=== PATIENT | female | born 1980 | race Caucasian/White ===

== ENCOUNTER 2017-03-06 19:57 | Emergency (ER) | payer BC ==
[2017-03-06 20:03] VITALS: BP 124/69
[2017-03-06] MEDS ORDERED: Albuterol/Ipratropium 3.0-0.5 MG/3 ML Neb Soln NEB ONE (20:13)
--- NOTE | 2017-03-06 20:16 | EDM.PDOC ---
ED HPI GENERAL MEDICAL PROBLEM - General Chief Complaint: Respiratory Problem Stated Complaint: BY AMBULANCE Time Seen by Provider: 03/06/17 20:13 Source of Information: Reports: Patient History Limitations: Reports: No Limitations - History of Present Illness INITIAL COMMENTS - FREE TEXT/NARRATIVE: h/o asthma use neb was ok till got out of shower started cough & wheeze not getting better. has been feeling warmer and not well past few days. - Related Data Allergies Allergy/AdvReac Type Severity Reaction Status Date / Time penicillin Allergy Anaphylactic Verified 06/14/16 16:02 Shock Home Meds: Home Meds Fluticasone Propionate [Flonase] 0 gm NASBOTH DAILY 06/27/15 [History] Albuterol Sulfate [Ventolin Hfa] 2 puff INH Q4H PRN 10/29/15 [History] Multivitamin 1 tab PO DAILY 10/29/15 [History] Past Medical History HEENT History: Reports: None Cardiovascular History: Reports: None Respiratory History: Reports: Asthma Gastrointestinal History: Reports: None Genitourinary History: Reports: Other (See Below) Other Genitourinary History: PCOS [employer]CHNICIAN History: Reports: Polycystic Ovaries Musculoskeletal History: Reports: Fracture Neurological History: Reports: None Psychiatric History: Reports: None Endocrine/Metabolic History: Reports: None Hematologic History: Reports: None Immunologic History: Reports: None Oncologic (Cancer) History: Reports: None Dermatologic History: Reports: None - Infectious Disease History Infectious Disease History: Reports: None - Past Surgical History Female Surgical History: Reports: Section Musculoskeletal Surgical History: Reports: Shoulder Surgery, Other (See Below) Social & Family History - Family History Family Medical History: Noncontributory HEENT: Reports: None Cardiac: Reports: None Respiratory: Reports: None GI: Reports: None : Reports: None OBGYN: Reports: None Musculoskeletal: Reports: None Neurological: Reports: None Endocrine/Metabolic: Reports: None Hematologic: Reports: None - Tobacco Use Smoking Status *Q: Never Smoker Years of Tobacco use: 10 Packs/Tins Daily: 0.1 Second Hand Smoke Exposure: No - Caffeine Use Caffeine Use: Reports: Coffee - Recreational Drug Use Recreational Drug Use: No - Living Situation & Occupation Living situation: Reports: , with Family Occupation: Employed ED ROS GENERAL - Review of Systems Review Of Systems: ROS reveals no pertinent complaints other than HPI. ED EXAM, GENERAL - Physical Exam Exam: See Below Exam Limited By: No Limitations General Appearance: Alert, WD/WN, Mild Distress, Other (episodic cough spasms) Ears: Hearing Grossly Normal Throat/Mouth: Normal Voice, No Airway Compromise Head: Atraumatic Neck: Non-Tender, Full Range of Motion Respiratory/Chest: No Respiratory Distress, No Accessory Muscle Use, Decreased Breath Sounds, Rhonchi, Wheezing. No: Retractions, Splinting Cardiovascular: Regular Rate, Rhythm GI/Abdominal: Soft, Non-Tender Neurological: Alert, Oriented, Normal Cognition, Normal Gait, No Motor/Sensory Deficits Psychiatric: Tearful Skin Exam: Warm, Dry Lymphatic: No Adenopathy Course - Vital Signs Last Recorded V/S: Last Vital Signs Temp 36.0 C 03/06/17 20:01 Pulse 115 H 03/06/17 20:01 Resp 18 03/06/17 20:01 BP 124/69 03/06/17 20:01 Pulse Ox 95 03/06/17 20:01 - Orders/Labs/Meds Orders: Active Orders 24 hr Category Date Time Status RT Aerosol Therapy [RC] ASDIRECTED Care 03/06/17 20:13 Active Chest 2V [CR] Urgent Exams 03/06/17 20:12 Taken Codeine/Promethazine [Phenergan with Codeine] Med 03/06/17 21:06 Once 5 ml PO ONETIME ONE Medication Orders Promethazine HCl/Codeine (Phenergan With Codeine) 5 ml PO ONETIME ONE Stop: 03/06/17 21:07 Labs: Laboratory Tests 03/06/17 03/06/17 Range/Units 20:30 20:30 WBC 9.0 (5.0-10.0) 10^3/uL RBC 5.42 H (4.2-5.4) 10^6/uL Hgb 14.0 (12.0-16.0) g/dL Hct 43.4 (37.0-47.0) % MCV 80.1 (80-100) fL MCH 25.8 L (27.0-34.0) pg MCHC 32.3 L (33.0-35.0) g/dL Plt Count 249 (150-450) 10^3/uL Neut % (Auto) 55.1 (42.2-75.2) % Lymph % (Auto) 30.8 (20.5-50.1) % [place] % (Auto) 7.9 (2-8) % Eos % (Auto) 5.6 H (1.0-3.0) % Baso % (Auto) 0.6 (0.0-1.0) % Sodium 139 (135-145) mmol/L Potassium 3.9 (3.6-5.0) mmol/L Chloride 105 (101-111) mmol/L Carbon Dioxide 26.0 (21.0-31.0) mmol/L Anion Gap 11.9 BUN 5 L (7-18) mg/dL Creatinine 0.9 (0.6-1.3) mg/dL Est Cr Clr Drug Dosing 72.17 mL/min Estimated GFR (MDRD) > 60 BUN/Creatinine Ratio 5.55 Glucose 157 H (74-105) mg/dL Calcium 8.9 (8.4-10.2) mg/dl Total Bilirubin 1.4 H (0.2-1.0) mg/dL AST 34 (10-42) IU/L ALT 38 (10-60) IU/L Alkaline Phosphatase 45 (42-121) IU/L Total Protein 6.8 (6.7-8.2) g/dl Albumin 4.0 (3.2-5.5) g/dl Globulin 2.8 Albumin/Globulin Ratio 1.43 Meds: Medications Generic Name Dose Route Start Last Admin Trade Name Freq PRN Reason Stop Dose Admin Promethazine HCl/Codeine 5 ml 03/06/17 21:06 Phenergan With Codeine PO 03/06/17 21:07 ONETIME ONE Discontinued Medications Generic Name Dose Route Start Last Admin Trade Name Freq PRN Reason Stop Dose Admin Albuterol/Ipratropium 3 ml 03/06/17 20:13 03/06/17 20:40 Duoneb 3.0-0.5 Mg/3 Ml NEB 03/06/17 20:14 3 ml ONETIME ONE Administration - Re-Assessments/Exams Free Text/Narrative Re-Assessment/Exam: 03/06/17 21:07 negative results discussed with Pt who is feeling much better now. Departure - Departure Time of Disposition: 21:07 Disposition: Home, Self-Care 01 Condition: good Clinical Impression: Asthma with status asthmaticus Qualifiers: Asthma severity: mild persistent Qualified Code(s): J45.32 - Mild persistent asthma with status asthmaticus - Discharge Information Instructions: Asthma, Adult Forms: ED Department Discharge Additional Instructions: 1) rest 2) drink lots of liquids 3) don't sleep flat at night 4) continue neb at home 5) follow up at clinic or recheck as needed rx given; medrol dospak phenergan codeine syrup qid prn - My Orders Last 24 Hours: My Active Orders 03/06/17 20:12 Chest 2V [CR] Urgent 03/06/17 20:13 RT Aerosol Therapy [RC] ASDIRECTED 03/06/17 21:06 Codeine/Promethazine [Phenergan with Codeine] 5 ml PO ONETIME ONE - Assessment/Plan Last 24 Hours: My Active Orders 03/06/17 20:12 Chest 2V [CR] Urgent 03/06/17 20:13 RT Aerosol Therapy [RC] ASDIRECTED 03/06/17 21:06 Codeine/Promethazine [Phenergan with Codeine] 5 ml PO ONETIME ONE
[2017-03-06 20:57] LABS: CHLORIDE,CL 105 mmol/L (101-111); SODIUM,NA 139 mmol/L (135-145)
[2017-03-06] MEDS ORDERED: Codeine/Promethazine 10-6.25 MG/5 ML Syrup 5 ML UD Cup PO ONE (21:06)
== END 2017-03-06 21:19 | disposition home or self-care (01) ==
LOC: DL.ED 19:57
DX: J45.32 Mild persistent asthma with status asthmaticus (principal); Z88.0 Allergy status to penicillin; Z79.899 Other long term (current) drug therapy
CPT/HCPCS: 36415; 71020; 80053; 85025; 94640; 99285

== ENCOUNTER 2017-09-04 13:20 | Emergency (ER) | payer BC ==
--- NOTE | 2017-09-04 13:33 | EDM.PDOC ---
ED HPI GENERAL MEDICAL PROBLEM - General Chief Complaint: Back Pain or Injury Stated Complaint: [id number] LOWER BACK PAIN Time Seen by Provider: 09/04/17 13:28 Source of Information: Reports: Patient History Limitations: Reports: No Limitations - History of Present Illness INITIAL COMMENTS - FREE TEXT/NARRATIVE: 36 yo white female c/o LBP since ( 3 days ). Pt. also states she slipped and fell backward onto steps two weeks ago. Pt. denies any other symptoms Onset Date: 09/02/17 Onset Time: 20:00 Duration: Day(s): Location: Reports: Back (low) Quality: Reports: Ache Severity: Moderate Improves with: Reports: Rest Worsens with: Reports: Movement Context: Reports: Activity Associated Symptoms: Reports: No Other Symptoms Lower Back Pain Score (Numeric/FACES): 8 - Related Data Allergies Allergy/AdvReac Type Severity Reaction Status Date / Time peanut Allergy Anaphylactic Verified 09/04/17 13:27 Shock penicillin Allergy Anaphylactic Verified 09/04/17 13:27 Shock shellfish derived Allergy Anaphylactic Verified 09/04/17 13:27 Shock environmental Allergy Itching Uncoded 03/06/17 21:08 Home Meds: Home Meds Fluticasone Propionate [Flonase] 0 gm NASBOTH DAILY 06/27/15 [History] Albuterol Sulfate [Ventolin Hfa] 2 puff INH Q4H PRN 10/29/15 [History] Multivitamin 1 tab PO DAILY 10/29/15 [History] Past Medical History HEENT History: Reports: None Cardiovascular History: Reports: None Respiratory History: Reports: Asthma Gastrointestinal History: Reports: None Genitourinary History: Reports: Other (See Below) Other Genitourinary History: PCOS 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 Musculoskeletal History: Reports: Fracture Neurological History: Reports: None Psychiatric History: Reports: None Endocrine/Metabolic History: Reports: None Hematologic History: Reports: None Immunologic History: Reports: None Oncologic (Cancer) History: Reports: None Dermatologic History: Reports: None - Infectious Disease History Infectious Disease History: Reports: None - Past Surgical History Head Surgeries/Procedures: Reports: None Female Surgical History: Reports: Section Musculoskeletal Surgical History: Reports: Shoulder Surgery Social & Family History - Family History Family Medical History: Noncontributory HEENT: Reports: None Cardiac: Reports: None Respiratory: Reports: None GI: Reports: None : Reports: None OBGYN: Reports: None Musculoskeletal: Reports: None Neurological: Reports: None Endocrine/Metabolic: Reports: None Hematologic: Reports: None - Tobacco Use Smoking Status *Q: Never Smoker Years of Tobacco use: 10 Packs/Tins Daily: 0.1 Second Hand Smoke Exposure: No - Caffeine Use Caffeine Use: Reports: Coffee - Recreational Drug Use Recreational Drug Use: No - Living Situation & Occupation Living situation: Reports: , with Family Occupation: Employed ED ROS GENERAL - Review of Systems Review Of Systems: See Below Constitutional: Reports: No Symptoms HEENT: Reports: No Symptoms Respiratory: Reports: No Symptoms Cardiovascular: Reports: No Symptoms Endocrine: Reports: No Symptoms GI/Abdominal: Reports: No Symptoms : Reports: No Symptoms Musculoskeletal: Reports: Back Pain (low) Skin: Reports: No Symptoms Neurological: Reports: No Symptoms Psychiatric: Reports: No Symptoms Hematologic/Lymphatic: Reports: No Symptoms Immunologic: Reports: No Symptoms ED EXAM,LOWER BACK PAIN/INJURY - Physical Exam Exam: See Below Exam Limited By: No Limitations General Appearance: Alert, WD/WN, No Apparent Distress Eye Exam: Bilateral Eye: EOMI, PERRL Ears: Normal External Exam Nose: Normal Inspection Throat/Mouth: Normal Inspection Head: Atraumatic Neck: Normal Inspection Respiratory/Chest: No Respiratory Distress, Lungs Clear Cardiovascular: Normal Peripheral Pulses GI/Abdominal: Normal Bowel Sounds, Soft Back Exam: Normal Inspection, Decreased Range of Motion, Paraspinal Tenderness, Vertebral Tenderness Extremities: Normal Inspection, Normal Range of Motion, Non-Tender Neurological: Alert, Normal Mood/Affect, Normal Dorsiflexion, CN II-XII Intact DTR - Lower Extremities: 2+: Knee (R), Knee (L) Psychiatric: Normal Affect Skin Exam: Warm, Dry, Intact Lymphatic: No Adenopathy Course - Vital Signs Text/Narrative:: Xray show Normal L/S spine and Increased bowel stool Last Recorded V/S: Last Vital Signs Temp 37.2 C 09/04/17 13:28 Pulse 107 H 09/04/17 13:28 Resp 18 09/04/17 13:28 BP 122/89 09/04/17 13:28 Pulse Ox 100 09/04/17 13:28 - Orders/Labs/Meds Orders: Active Orders 24 hr Category Date Time Status Lumbar Spine 2 or 3V [CR] Urgent Exams 09/04/17 14:01 Taken CBC WITH AUTO DIFF [HEME] Stat Lab 09/04/17 13:38 Results ESR [SEDIMENTATION RATE MANUAL] [HEME] Stat Lab 09/04/17 13:38 Results Labs: Laboratory Tests 09/04/17 09/04/17 09/04/17 Range/Units 13:35 13:35 13:35 WBC (5.0-10.0) 10^3/uL RBC (4.2-5.4) 10^6/uL Hgb (12.0-16.0) g/dL Hct (37.0-47.0) % MCV (80-100) fL MCH (27.0-34.0) pg MCHC (33.0-35.0) g/dL Plt Count (150-450) 10^3/uL Neut % (Auto) (42.2-75.2) % Lymph % (Auto) (20.5-50.1) % [place] % (Auto) (2-8) % Eos % (Auto) (1.0-3.0) % Baso % (Auto) (0.0-1.0) % Urine Color Yellow (YELLOW) Urine Appearance Clear (CLEAR) Urine pH 6.0 (5.0-9.0) Ur Specific [place] 1.010 (1.005-1.030) Urine Protein Negative (NEGATIVE) Urine Glucose (UA) 500 H (NEGATIVE) Urine Ketones Negative (NEGATIVE) Urine Occult Blood Negative (NEGATIVE) Urine Nitrite Negative (NEGATIVE) Urine Bilirubin Negative (NEGATIVE) Urine Urobilinogen 0.2 (0.2-1.0) mg/dL Ur Leukocyte Esterase Negative (NEGATIVE) Urine RBC Not seen /HPF Urine WBC 0-5 (0-5/HPF) /HPF Ur Epithelial Cells Rare /HPF Urine Bacteria Occasional (0-FEW/HPF) /HPF Urine HCG, Qual Negative Urine Opiates Screen Negative (NEGATIVE) Ur Oxycodone Screen Negative (NEGATIVE) Urine Methadone Screen Negative (NEGATIVE) Ur Barbiturates Screen Negative (NEGATIVE) U Tricyclic Antidepress Negative (NEGATIVE) Ur Phencyclidine Scrn Negative (NEGATIVE) Ur Amphetamine Screen Negative (NEGATIVE) U Methamphetamines Scrn Negative (NEGATIVE) Urine MDMA Screen Negative (NEGATIVE) U Benzodiazepines Scrn Negative (NEGATIVE) Urine Cocaine Screen Negative (NEGATIVE) U Marijuana (THC) Screen Negative (NEGATIVE) 09/04/17 Range/Units 13:38 WBC 11.3 H (5.0-10.0) 10^3/uL RBC 5.30 (4.2-5.4) 10^6/uL Hgb 13.1 (12.0-16.0) g/dL Hct 40.8 (37.0-47.0) % MCV 77.0 L D (80-100) fL MCH 24.7 L (27.0-34.0) pg MCHC 32.1 L (33.0-35.0) g/dL Plt Count 307 (150-450) 10^3/uL Neut % (Auto) 68.9 (42.2-75.2) % Lymph % (Auto) 23.2 (20.5-50.1) % [place] % (Auto) 6.0 (2-8) % Eos % (Auto) 1.6 (1.0-3.0) % Baso % (Auto) 0.3 (0.0-1.0) % Urine Color (YELLOW) Urine Appearance (CLEAR) Urine pH (5.0-9.0) Ur Specific [place] (1.005-1.030) Urine Protein (NEGATIVE) Urine Glucose (UA) (NEGATIVE) Urine Ketones (NEGATIVE) Urine Occult Blood (NEGATIVE) Urine Nitrite (NEGATIVE) Urine Bilirubin (NEGATIVE) Urine Urobilinogen (0.2-1.0) mg/dL Ur Leukocyte Esterase (NEGATIVE) Urine RBC /HPF Urine WBC (0-5/HPF) /HPF Ur Epithelial Cells /HPF Urine Bacteria (0-FEW/HPF) /HPF Urine HCG, Qual Urine Opiates Screen (NEGATIVE) Ur Oxycodone Screen (NEGATIVE) Urine Methadone Screen (NEGATIVE) Ur Barbiturates Screen (NEGATIVE) U Tricyclic Antidepress (NEGATIVE) Ur Phencyclidine Scrn (NEGATIVE) Ur Amphetamine Screen (NEGATIVE) U Methamphetamines Scrn (NEGATIVE) Urine MDMA Screen (NEGATIVE) U Benzodiazepines Scrn (NEGATIVE) Urine Cocaine Screen (NEGATIVE) U Marijuana (THC) Screen (NEGATIVE) Meds: Medications Discontinued Medications Generic Name Dose Route Start Last Admin Trade Name Freq PRN Reason Stop Dose Admin Gabapentin 300 mg 09/04/17 14:01 09/04/17 14:15 Neurontin PO 09/04/17 14:02 300 mg ONETIME ONE Administration Departure - Departure Time of Disposition: 14:16 Disposition: Home, Self-Care 01 Condition: Good Clinical Impression: Acute bilateral low back pain without sciatica - Discharge Information Instructions: Back Pain, Adult, [id number], Muscle Strain, [id number] Forms: ED Department Discharge Additional Instructions: Rest Increase intake of water and Fresh Fruits and Vegetables to promote good bowel health No lifting, pulling or pushing Apply Moist heat to Low Back TID X 15 mins. For Pain: NEURONTIN 300mg BID # 20 MOTRIN 600mg TID w/ Food # 30 F/U w/ PCP - My Orders Last 24 Hours: My Active Orders 09/04/17 13:38 CBC WITH AUTO DIFF [HEME] Stat ESR [SEDIMENTATION RATE MANUAL] [HEME] Stat 09/04/17 14:01 Lumbar Spine 2 or 3V [CR] Urgent - Assessment/Plan Last 24 Hours: My Active Orders 09/04/17 13:38 CBC WITH AUTO DIFF [HEME] Stat ESR [SEDIMENTATION RATE MANUAL] [HEME] Stat 09/04/17 14:01 Lumbar Spine 2 or 3V [CR] Urgent
[2017-09-04 13:36] VITALS: BP 122/89
[2017-09-04] MEDS ORDERED: Gabapentin 300 MG Cap PO ONE (14:01)
== END 2017-09-04 14:27 | disposition home or self-care (01) ==
LOC: DL.ED 13:20
DX: M54.5 Low back pain (principal); Z91.010 Allergy to peanuts; Z88.0 Allergy status to penicillin; Z91.013 Allergy to seafood; Z79.899 Other long term (current) drug therapy
CPT/HCPCS: 36415; 72100; 80305; 81001; 81025; 85025; 85651; 99283; A9270

== ENCOUNTER 2017-10-03 20:28 | Emergency (ER) | payer BC ==
[2017-10-03 20:58] VITALS: BP 121/77
[2017-10-03] MEDS ORDERED: methylPREDNISolone Sodium Succinate 125 MG/2 ML SDV IM ONE (21:09)
[2017-10-03] MEDS ORDERED: Codeine/Promethazine 10-6.25 MG/5 ML Syrup 5 ML UD Cup PO ONE (21:09)
[2017-10-03] MEDS ORDERED: Albuterol/Ipratropium 3.0-0.5 MG/3 ML Neb Soln NEB ONE (21:09)
--- NOTE | 2017-10-03 21:15 | EDM.PDOC ---
ED HPI GENERAL MEDICAL PROBLEM - General Chief Complaint: Respiratory Problem Stated Complaint: HARD TIME BREATHING [id number] Time Seen by Provider: 10/03/17 21:10 Source of Information: Reports: Patient History Limitations: Reports: No Limitations - History of Present Illness INITIAL COMMENTS - FREE TEXT/NARRATIVE: cough spasm past few days, been taking nebs but not working. - Related Data Allergies Allergy/AdvReac Type Severity Reaction Status Date / Time peanut Allergy Anaphylactic Verified 10/03/17 20:53 Shock penicillin Allergy Anaphylactic Verified 10/03/17 20:53 Shock shellfish derived Allergy Anaphylactic Verified 10/03/17 20:53 Shock beer Allergy Anaphylactic Uncoded 10/03/17 20:53 Shock environmental Allergy Itching Uncoded 03/06/17 21:08 Home Meds: Home Meds Fluticasone Propionate [Flonase] 2 spray NASBOTH BID 06/27/15 [History] Albuterol Sulfate [Ventolin Hfa] 2 puff INH Q4H PRN 10/29/15 [History] Multivitamin 1 tab PO DAILY 10/29/15 [History] Albuterol Sulfate [Albuterol Sulfate] 3 ml INH Q4H 10/03/17 [History] Past Medical History HEENT History: Reports: None Cardiovascular History: Reports: None Respiratory History: Reports: Asthma Gastrointestinal History: Reports: None Genitourinary History: Reports: Other (See Below) Other Genitourinary History: PCOS 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 Musculoskeletal History: Reports: Fracture Neurological History: Reports: None Psychiatric History: Reports: None Endocrine/Metabolic History: Reports: None Hematologic History: Reports: None Immunologic History: Reports: None Oncologic (Cancer) History: Reports: None Dermatologic History: Reports: None - Infectious Disease History Infectious Disease History: Reports: None - Past Surgical History Head Surgeries/Procedures: Reports: None HEENT Surgical History: Reports: Adenoidectomy, Tonsillectomy Female Surgical History: Reports: Section Musculoskeletal Surgical History: Reports: Shoulder Surgery, Other (See Below) Other Musculoskeletal Surgeries/Procedures:: ankle surgery Social & Family History - Family History Family Medical History: Noncontributory HEENT: Reports: None Cardiac: Reports: None Respiratory: Reports: None GI: Reports: None : Reports: None OBGYN: Reports: None Musculoskeletal: Reports: None Neurological: Reports: None Endocrine/Metabolic: Reports: None Hematologic: Reports: None - Tobacco Use Smoking Status *Q: Never Smoker Years of Tobacco use: 10 Packs/Tins Daily: 0.1 Used Tobacco, but Quit: Yes Month Tobacco Last Used: april Second Hand Smoke Exposure: No - Caffeine Use Caffeine Use: Reports: Coffee, Soda, Tea - Recreational Drug Use Recreational Drug Use: No - Living Situation & Occupation Living situation: Reports: , with Family Occupation: Employed ED ROS GENERAL - Review of Systems Review Of Systems: ROS reveals no pertinent complaints other than HPI. ED EXAM, GENERAL - Physical Exam Exam: See Below Exam Limited By: No Limitations General Appearance: Alert, WD/WN, Mild Distress, Moderate Distress, Other ( cough spasms) Ears: Hearing Grossly Normal Throat/Mouth: Normal Voice, No Airway Compromise Head: Atraumatic Neck: Non-Tender, Full Range of Motion Respiratory/Chest: No Respiratory Distress, No Accessory Muscle Use, Rhonchi, Wheezing. No: Decreased Breath Sounds Cardiovascular: Regular Rate, Rhythm GI/Abdominal: Soft, Non-Tender Neurological: Alert, Oriented, Normal Cognition, Normal Gait, No Motor/Sensory Deficits, Other Psychiatric: Normal Affect Skin Exam: Warm, Dry, Normal Color Lymphatic: No Adenopathy Course - Vital Signs Last Recorded V/S: Last Vital Signs Temp 37.3 C 10/03/17 20:57 Pulse 110 H 10/03/17 21:31 Resp 20 10/03/17 20:57 BP 121/77 10/03/17 20:57 Pulse Ox 100 10/03/17 20:57 - Orders/Labs/Meds Orders: Active Orders 24 hr Category Date Time Status RT Aerosol Therapy [RC] ASDIRECTED Care 10/03/17 21:10 Active Meds: Medications Discontinued Medications Generic Name Dose Route Start Last Admin Trade Name Freq PRN Reason Stop Dose Admin Albuterol/Ipratropium 3 ml 10/03/17 21:09 10/03/17 21:20 Duoneb 3.0-0.5 Mg/3 Ml NEB 10/03/17 21:10 3 ml ONETIME ONE Administration Methylprednisolone Sodium Succinate 125 mg 10/03/17 21:09 10/03/17 21:20 Solu-Medrol IM 10/03/17 21:10 125 mg ONETIME ONE Administration Promethazine HCl/Codeine 5 ml 10/03/17 21:09 10/03/17 21:20 Phenergan With Codeine PO 10/03/17 21:10 5 ml ONETIME ONE Administration - Re-Assessments/Exams Free Text/Narrative Re-Assessment/Exam: 10/03/17 21:16 re-exam; s/p duoneb + IM solumed = much better. Departure - Departure Time of Disposition: 21:40 Disposition: Home, Self-Care 01 Condition: Good Clinical Impression: Bronchospasm with bronchitis, acute - Discharge Information Instructions: Bronchospasm, Adult, [id number] Referrals: Pennie Farias MD [Primary Care Provider] - Forms: ED Department Discharge Additional Instructions: 1) rest and asleep as much as possible 2) don't sleep flat at night 3) continue neb treatment daily 4) recheck as needed rx given; medrol dospak phenergan codeine syrup qid prn x 4oz - My Orders Last 24 Hours: My Active Orders 10/03/17 21:10 RT Aerosol Therapy [RC] ASDIRECTED - Assessment/Plan Last 24 Hours: My Active Orders 10/03/17 21:10 RT Aerosol Therapy [RC] ASDIRECTED
== END 2017-10-03 21:43 | disposition home or self-care (01) ==
LOC: DL.ED 20:28
DX: J20.9 Acute bronchitis, unspecified (principal); Z91.010 Allergy to peanuts; Z88.0 Allergy status to penicillin; Z91.013 Allergy to seafood
CPT/HCPCS: 94640; 99284; A9270; J2930; 96372

== ENCOUNTER 2017-11-26 21:44 | Emergency (ER) | payer BC ==
[2017-11-26] MEDS ORDERED: methylPREDNISolone Sodium Succinate 125 MG/2 ML SDV IVPUSH ONE (21:58)
[2017-11-26] MEDS ORDERED: Albuterol/Ipratropium 3.0-0.5 MG/3 ML Neb Soln NEB ONE (22:09)
[2017-11-26] MEDS ORDERED: Albuterol 0.083% 2.5 MG/3 ML Neb Soln NEB ONE (23:05)
[2017-11-26] MEDS ORDERED: Albuterol 0.083% 2.5 MG/3 ML Neb Soln ONE (23:07)
--- NOTE | 2017-11-26 23:11 | EDM.PDOC ---
ED HPI GENERAL MEDICAL PROBLEM - General Chief Complaint: Respiratory Problem Stated Complaint: [id number] hard time breathing Time Seen by Provider: 11/26/17 22:00 Source of Information: Reports: Patient History Limitations: Reports: No Limitations - History of Present Illness INITIAL COMMENTS - FREE TEXT/NARRATIVE: Patient states walking out of local theater and had asthma attack, tried inhaler but didn't help, feels tight in chest. Usual use of neb every am, occasional twice daily. No recent URI symptoms. Onset: Today - Related Data Allergies Allergy/AdvReac Type Severity Reaction Status Date / Time peanut Allergy Anaphylactic Verified 11/26/17 23:08 Shock penicillin Allergy Anaphylactic Verified 11/26/17 23:08 Shock shellfish derived Allergy Anaphylactic Verified 11/26/17 23:08 Shock beer Allergy Anaphylactic Uncoded 10/03/17 20:53 Shock environmental Allergy Itching Uncoded 03/06/17 21:08 Home Meds: Home Meds Fluticasone Propionate [Flonase] 2 spray NASBOTH BID 06/27/15 [History] Albuterol Sulfate [Ventolin Hfa] 2 puff INH Q4H PRN 10/29/15 [History] Multivitamin 1 tab PO DAILY 10/29/15 [History] Albuterol Sulfate [Albuterol Sulfate] 3 ml INH Q4H 10/03/17 [History] Cholesterol Pill 20 mg PO BEDTIME 11/26/17 [History] metFORMIN [Glucophage] 1,000 mg PO DAILY 11/26/17 [History] metFORMIN [Glucophage] 1,500 mg PO DAILY 11/26/17 [History] Past Medical History HEENT History: Reports: None Cardiovascular History: Reports: None Respiratory History: Reports: Asthma Gastrointestinal History: Reports: None Genitourinary History: Reports: Other (See Below) Other Genitourinary History: PCOS 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 Musculoskeletal History: Reports: Fracture Neurological History: Reports: None Psychiatric History: Reports: None Endocrine/Metabolic History: Reports: None Hematologic History: Reports: None Immunologic History: Reports: None Oncologic (Cancer) History: Reports: None Dermatologic History: Reports: None - Infectious Disease History Infectious Disease History: Reports: None - Past Surgical History Head Surgeries/Procedures: Reports: None HEENT Surgical History: Reports: Adenoidectomy, Tonsillectomy Female Surgical History: Reports: Section Musculoskeletal Surgical History: Reports: Shoulder Surgery, Other (See Below) Other Musculoskeletal Surgeries/Procedures:: ankle surgery Social & Family History - Family History Family Medical History: Noncontributory HEENT: Reports: None Cardiac: Reports: None Respiratory: Reports: None GI: Reports: None : Reports: None OBGYN: Reports: None Musculoskeletal: Reports: None Neurological: Reports: None Endocrine/Metabolic: Reports: None Hematologic: Reports: None - Tobacco Use Smoking Status *Q: Never Smoker Years of Tobacco use: 10 Packs/Tins Daily: 0.1 Used Tobacco, but Quit: Yes Month Tobacco Last Used: april Second Hand Smoke Exposure: No - Caffeine Use Caffeine Use: Reports: Coffee, Soda, Tea - Recreational Drug Use Recreational Drug Use: No - Living Situation & Occupation Living situation: Reports: , with Family Occupation: Employed ED ROS GENERAL - Review of Systems Review Of Systems: See Below Constitutional: Reports: No Symptoms HEENT: Reports: No Symptoms Respiratory: Reports: Shortness of Breath, Wheezing, Cough. Denies: Sputum Cardiovascular: Reports: No Symptoms Endocrine: Reports: No Symptoms GI/Abdominal: Reports: No Symptoms Musculoskeletal: Reports: No Symptoms Neurological: Reports: No Symptoms ED EXAM, GENERAL - Physical Exam Exam: See Below Exam Limited By: No Limitations General Appearance: Alert, Mild Distress Eye Exam: Bilateral Eye: EOMI Ears: Normal External Exam Nose: Normal Inspection Throat/Mouth: Normal Inspection Head: Atraumatic Neck: Normal Inspection Respiratory/Chest: Decreased Breath Sounds, Wheezing. No: No Respiratory Distress (mild) Cardiovascular: Normal Peripheral Pulses, Tachycardia GI/Abdominal: Normal Bowel Sounds Extremities: Normal Inspection Neurological: Alert, Oriented Psychiatric: Normal Affect Skin Exam: Warm, Dry, Intact, Normal Color Course - Vital Signs Last Recorded V/S: Last Vital Signs Temp 97.7 F 11/26/17 21:55 Pulse 122 H 11/26/17 23:00 Resp 16 11/26/17 23:00 BP 113/68 11/26/17 23:00 Pulse Ox 98 11/26/17 22:30 - Orders/Labs/Meds Meds: Medications Discontinued Medications Generic Name Dose Route Start Last Admin Trade Name Freq PRN Reason Stop Dose Admin Albuterol 2.5 mg 11/26/17 23:05 11/26/17 23:11 Proventil Neb Soln NEB 11/26/17 23:06 2.5 mg ONETIME ONE Administration Albuterol Confirm 11/26/17 23:07 Proventil Neb Soln Administered 11/26/17 23:08 Dose 2.5 mg .ROUTE .STK-MED ONE Albuterol/Ipratropium 3 ml 11/26/17 22:09 11/26/17 22:13 Duoneb 3.0-0.5 Mg/3 Ml NEB 11/26/17 22:10 3 ml ONETIME ONE Administration Methylprednisolone Sodium Succinate 125 mg 11/26/17 21:58 11/26/17 22:09 Solu-Medrol IVPUSH 11/26/17 21:59 125 mg ONETIME ONE Administration - Radiology Interpretation Free Text/Narrative:: cxr negative - Re-Assessments/Exams Free Text/Narrative Re-Assessment/Exam: 11/26/17 23:08 Moderate improvement following Duo neb. Air exchange improved, , cough with deep inspiration or force d expiration. Repeat albuterol. Departure - Departure Time of Disposition: 23:50 Disposition: Home, Self-Care 01 Condition: Good Clinical Impression: Exacerbation of asthma Qualifiers: Asthma severity: moderate Asthma persistence: persistent Qualified Code(s): J45.41 - Moderate persistent asthma with (acute) exacerbation - Discharge Information Instructions: Asthma, Adult, [id number] Referrals: Pennie Farias MD [Primary Care Provider] - Forms: ED Department Discharge Additional Instructions: rest, light activity tonight albuterol nebulizer or inhaler every 4 hours as needed urgent follow up if symtoms worsen and poor control with home management
[2017-11-26 23:52] VITALS: BP 113/68
== END 2017-11-26 23:30 | disposition home or self-care (01) ==
LOC: DL.ED 21:44
DX: J45.41 Moderate persistent asthma with (acute) exacerbation (principal); Z91.010 Allergy to peanuts; Z88.0 Allergy status to penicillin; Z91.013 Allergy to seafood; Z79.84 Long term (current) use of oral hypoglycemic drugs; Z87.891 Personal history of nicotine dependence
CPT/HCPCS: 71045; 94640; 96374; 99285; J2930; J7620

== ENCOUNTER 2018-02-22 21:30 | Emergency (ER) | payer BC ==
[2018-02-22 21:38] VITALS: BP 132/79
[2018-02-22 22:23] LABS: CHLORIDE,CL 104 mmol/L (101-111); SODIUM,NA 138 mmol/L (135-145)
[2018-02-22] MEDS ORDERED: Ibuprofen 600 MG Tab PO ONE (23:33)
[2018-02-22] MEDS ORDERED: Cyclobenzaprine 10 MG Tab PO ONE (23:33)
--- NOTE | 2018-02-22 23:38 | EDM.PDOC ---
ED HPI GENERAL MEDICAL PROBLEM - General Chief Complaint: Chest Pain Stated Complaint: PAINS ACROSS CHEST [id number] Time Seen by Provider: 02/22/18 21:45 Source of Information: Reports: Patient History Limitations: Reports: No Limitations - History of Present Illness INITIAL COMMENTS - FREE TEXT/NARRATIVE: chest pain since 4 pm today, worse with movement, sitting up . Pain radiates across chest, describes as sharp, no difficulty with breathing. No change in activity. Was at dentist for 3 hours today. Bilateral Chest Pain Score (Numeric/FACES): 4 - Related Data Allergies Allergy/AdvReac Type Severity Reaction Status Date / Time peanut Allergy Anaphylactic Verified 02/22/18 21:38 Shock penicillin Allergy Anaphylactic Verified 02/22/18 21:38 Shock shellfish derived Allergy Anaphylactic Verified 02/22/18 21:38 Shock beer Allergy Anaphylactic Uncoded 02/22/18 21:38 Shock environmental Allergy Itching Uncoded 02/22/18 21:38 Home Meds: Home Meds Fluticasone Propionate [Flonase] 2 spray NASBOTH BID 06/27/15 [History] Albuterol Sulfate [Ventolin Hfa] 2 puff INH Q4H PRN 10/29/15 [History] Multivitamin 1 tab PO DAILY 10/29/15 [History] Albuterol Sulfate 3 ml INH Q4H 10/03/17 [History] metFORMIN [Glucophage] 1,000 mg PO DAILY 11/26/17 [History] atorvaSTATin [Lipitor] 20 mg PO BEDTIME 02/22/18 [History] Past Medical History HEENT History: Reports: None Cardiovascular History: Reports: High Cholesterol Respiratory History: Reports: Asthma Gastrointestinal History: Reports: None Genitourinary History: Reports: Other (See Below) Other Genitourinary History: 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 Musculoskeletal History: Reports: Fracture Neurological History: Reports: None Psychiatric History: Reports: None Endocrine/Metabolic History: Reports: Diabetes, Type II Hematologic History: Reports: None Immunologic History: Reports: None Oncologic (Cancer) History: Reports: None Dermatologic History: Reports: None - Infectious Disease History Infectious Disease History: Reports: None - Past Surgical History Head Surgeries/Procedures: Reports: None HEENT Surgical History: Reports: Adenoidectomy, Tonsillectomy Female Surgical History: Reports: Section Musculoskeletal Surgical History: Reports: Shoulder Surgery, Other (See Below) Other Musculoskeletal Surgeries/Procedures:: ankle surgery Social & Family History - Family History Family Medical History: Noncontributory HEENT: Reports: None Cardiac: Reports: None Respiratory: Reports: None GI: Reports: None : Reports: None OBGYN: Reports: None Musculoskeletal: Reports: None Neurological: Reports: None Endocrine/Metabolic: Reports: None Hematologic: Reports: None - Tobacco Use Smoking Status *Q: Never Smoker Second Hand Smoke Exposure: No - Caffeine Use Caffeine Use: Reports: Coffee, Soda - Recreational Drug Use Recreational Drug Use: No - Living Situation & Occupation Living situation: Reports: , with Family Occupation: Employed ED ROS GENERAL - Review of Systems Review Of Systems: See Below Constitutional: Reports: No Symptoms HEENT: Reports: No Symptoms Respiratory: Reports: No Symptoms. Denies: Shortness of Breath, Wheezing, Pleuritic Chest Pain (no pain with deep inspiration), Cough Cardiovascular: Reports: No Symptoms GI/Abdominal: Reports: No Symptoms Musculoskeletal: Reports: Other (upper chest pain radiates bilaterally with movment, no pain with breathing or when lying still. ) Neurological: Reports: No Symptoms Psychiatric: Reports: Anxiety Hematologic/Lymphatic: Reports: No Symptoms ED EXAM, GENERAL - Physical Exam Exam: See Below Exam Limited By: No Limitations General Appearance: Alert, Anxious, Mild Distress (with movment) Ears: Normal External Exam Nose: Normal Inspection Throat/Mouth: Normal Inspection Head: Atraumatic, Normocephalic Respiratory/Chest: No Respiratory Distress, Lungs Clear, Normal Breath Sounds, Other (mild tenderness with palpation to upper chest). No: Crackles, Rales, Rhonchi, Accessory Muscle Use, Splinting Cardiovascular: Normal Peripheral Pulses, Regular Rate, Rhythm GI/Abdominal: Normal Bowel Sounds, Soft Back Exam: Normal Inspection Extremities: Normal Inspection Neurological: Alert, Oriented, Normal Cognition Psychiatric: Normal Affect, Anxious (mild) Skin Exam: Warm, Dry, Intact EKG INTERPRETATION Rhythm: NSR Course - Vital Signs Last Recorded V/S: Last Vital Signs Temp 99 F 02/22/18 21:33 Pulse 103 H 02/22/18 21:33 Resp 18 02/22/18 21:33 BP 132/79 02/22/18 21:33 Pulse Ox 97 02/22/18 21:33 - Orders/Labs/Meds Orders: Active Orders 24 hr Category Date Time Status EKG 12 Lead [EKG Documentation Completion] [RC] STAT Care 02/22/18 21:54 Active Labs: Laboratory Tests 02/22/18 02/22/18 02/22/18 Range/Units 21:51 21:51 21:51 WBC 13.9 H (5.0-10.0) 10^3/uL RBC 5.03 (4.2-5.4) 10^6/uL Hgb 11.8 L (12.0-16.0) g/dL Hct 37.5 (37.0-47.0) % MCV 74.6 L (80-100) fL MCH 23.5 L (27.0-34.0) pg MCHC 31.5 L (33.0-35.0) g/dL Plt Count 325 (150-450) 10^3/uL Neut % (Auto) 68.6 (42.2-75.2) % Lymph % (Auto) 24.8 (20.5-50.1) % Buchanan % (Auto) 5.3 (2-8) % Eos % (Auto) 1.2 (1.0-3.0) % Baso % (Auto) 0.1 (0.0-1.0) % D-Dimer, Quantitative < 100 (0-400) ng/mL Sodium 138 (135-145) mmol/L Potassium 3.9 (3.6-5.0) mmol/L Chloride 104 (101-111) mmol/L Carbon Dioxide 24.0 (21.0-31.0) mmol/L Anion Gap 13.9 BUN 9 (7-18) mg/dL Creatinine 0.9 (0.6-1.3) mg/dL Est Cr Clr Drug Dosing 71.48 mL/min Estimated GFR (MDRD) > 60 BUN/Creatinine Ratio 10.00 Glucose 135 H (74-105) mg/dL Calcium 9.4 (8.4-10.2) mg/dl Total Bilirubin 1.5 H (0.2-1.0) mg/dL AST 21 (10-42) IU/L ALT 20 (10-60) IU/L Alkaline Phosphatase 45 (42-121) IU/L Troponin I < 0.02 (0.00-0.02) ng/ml Total Protein 6.9 (6.7-8.2) g/dl Albumin 4.0 (3.2-5.5) g/dl Globulin 2.9 Albumin/Globulin Ratio 1.38 Amylase (28-100) U/L Urine Color (YELLOW) Urine Appearance (CLEAR) Urine pH (5.0-9.0) Ur Specific Girard (1.005-1.030) Urine Protein (NEGATIVE) Urine Glucose (UA) (NEGATIVE) Urine Ketones (NEGATIVE) Urine Occult Blood (NEGATIVE) Urine Nitrite (NEGATIVE) Urine Bilirubin (NEGATIVE) Urine Urobilinogen (0.2-1.0) mg/dL Ur Leukocyte Esterase (NEGATIVE) Urine RBC /HPF Urine WBC (0-5/HPF) /HPF Ur Epithelial Cells /HPF Urine Bacteria (0-FEW/HPF) /HPF 02/22/18 02/22/18 Range/Units 21:51 22:45 WBC (5.0-10.0) 10^3/uL RBC (4.2-5.4) 10^6/uL Hgb (12.0-16.0) g/dL Hct (37.0-47.0) % MCV (80-100) fL MCH (27.0-34.0) pg MCHC (33.0-35.0) g/dL Plt Count (150-450) 10^3/uL Neut % (Auto) (42.2-75.2) % Lymph % (Auto) (20.5-50.1) % Buchanan % (Auto) (2-8) % Eos % (Auto) (1.0-3.0) % Baso % (Auto) (0.0-1.0) % D-Dimer, Quantitative (0-400) ng/mL Sodium (135-145) mmol/L Potassium (3.6-5.0) mmol/L Chloride (101-111) mmol/L Carbon Dioxide (21.0-31.0) mmol/L Anion Gap BUN (7-18) mg/dL Creatinine (0.6-1.3) mg/dL Est Cr Clr Drug Dosing mL/min Estimated GFR (MDRD) BUN/Creatinine Ratio Glucose (74-105) mg/dL Calcium (8.4-10.2) mg/dl Total Bilirubin (0.2-1.0) mg/dL AST (10-42) IU/L ALT (10-60) IU/L Alkaline Phosphatase (42-121) IU/L Troponin I (0.00-0.02) ng/ml Total Protein (6.7-8.2) g/dl Albumin (3.2-5.5) g/dl Globulin Albumin/Globulin Ratio Amylase 30 (28-100) U/L Urine Color Yellow (YELLOW) Urine Appearance Slightly cloudy (CLEAR) Urine pH 6.5 (5.0-9.0) Ur Specific Girard 1.015 (1.005-1.030) Urine Protein Negative (NEGATIVE) Urine Glucose (UA) Negative (NEGATIVE) Urine Ketones Negative (NEGATIVE) Urine Occult Blood Negative (NEGATIVE) Urine Nitrite Negative (NEGATIVE) Urine Bilirubin Negative (NEGATIVE) Urine Urobilinogen 0.2 (0.2-1.0) mg/dL Ur Leukocyte Esterase Negative (NEGATIVE) Urine RBC 0-5 /HPF Urine WBC 0-5 (0-5/HPF) /HPF Ur Epithelial Cells Many H /HPF Urine Bacteria Moderate H (0-FEW/HPF) /HPF Meds: Medications Discontinued Medications Generic Name Dose Route Start Last Admin Trade Name Freq PRN Reason Stop Dose Admin Cyclobenzaprine HCl 10 mg 02/22/18 23:33 02/22/18 23:37 Flexeril PO 02/22/18 23:34 10 mg ONETIME ONE Administration Ibuprofen 600 mg 02/22/18 23:33 02/22/18 23:37 Motrin PO 02/22/18 23:34 600 mg ONETIME ONE Administration - Radiology Interpretation Free Text/Narrative:: CCXR negative Departure - Departure Time of Disposition: 23:34 Disposition: Home, Self-Care 01 Condition: Good Clinical Impression: Acute chest wall pain Instructions: Chest Wall Pain, [id number] Referrals: Pennie Farias MD [Primary Care Provider] - Forms: ED Department Discharge Additional Instructions: ibuprofen 600mg every 6 hours as needed for discomfort encourage deep breathing flexeril 10mg every 8 hours as needed for spasm follow up Wednesday in clinic if not improving, Urgent follow up if difficulty breathing - My Orders Last 24 Hours: My Active Orders 02/22/18 21:54 EKG 12 Lead [EKG Documentation Completion] [RC] STAT - Assessment/Plan Last 24 Hours: My Active Orders 02/22/18 21:54 EKG 12 Lead [EKG Documentation Completion] [RC] STAT
--- NOTE | 2018-02-24 07:18 | EKG ---
02/22/2018- UBALDO GÓMEZ - 12-lead EKG shows normal sinus rhythm with heart rate of 95. No significant ST elevation or ST depression noted on this 12-lead EKG. [facility] /[id number]
== END 2018-02-22 23:50 | disposition home or self-care (01) ==
LOC: DL.ED 21:30
DX: R07.89 Other chest pain (principal); E11.9 Type 2 diabetes mellitus without complications; E78.00 Pure hypercholesterolemia, unspecified; Z79.84 Long term (current) use of oral hypoglycemic drugs; Z79.899 Other long term (current) drug therapy; Z91.013 Allergy to seafood; Z88.0 Allergy status to penicillin; Z91.018 Allergy to other foods; Z91.010 Allergy to peanuts; Z91.09 Other allergy status, other than to drugs and biological substances
CPT/HCPCS: 36415; 71045; 80053; 81001; 82150; 84484; 85025; 85379; 93005; 99285; A9270-GY

== ENCOUNTER 2018-06-13 16:50 | Emergency (ER) | payer BC ==
[2018-06-13] MEDS ORDERED: diphenhydrAMINE 50 MG/ML SDV IVPUSH ONE (17:01)
[2018-06-13] MEDS ORDERED: Albuterol 0.083% 2.5 MG/3 ML Neb Soln NEB ONE (17:01)
[2018-06-13] MEDS ORDERED: methylPREDNISolone Sodium Succinate 125 MG/2 ML SDV IVPUSH ONE (17:01)
[2018-06-13] MEDS ORDERED: Sodium Chloride 0.9% 10 ML Syringe FLUSH PRN (17:02)
[2018-06-13] MEDS ORDERED: Albuterol 0.083% 2.5 MG/3 ML Neb Soln ONE (17:03)
--- NOTE | 2018-06-13 17:46 | EDM.PDOC ---
Scribed by She Garsia 06/13/18 [id number] for Almas Price MD ED HPI GENERAL MEDICAL PROBLEM - General Chief Complaint: Allergic Reaction Stated Complaint: ALLERGIC REACTION [id number] Time Seen by Provider: 06/13/18 16:52 Source of Information: Reports: Patient, RN, RN Notes Reviewed History Limitations: Reports: No Limitations - History of Present Illness INITIAL COMMENTS - FREE TEXT/NARRATIVE: Patient presents to ER with complaint that she ate some cantaloupe out of her garden and about 30 minutes later she felt some swelling in her throat and wheezing. Denies difficulty breathing. She has had similar reaction to food allergies in the past. Denies hives or rash. Onset: Today Duration: Getting Worse Location: Reports: Generalized Severity: Moderate Improves with: Reports: None Worsens with: Reports: None Associated Symptoms: Reports: No Other Symptoms - Related Data Allergies Allergy/AdvReac Type Severity Reaction Status Date / Time peanut Allergy Anaphylactic Verified 06/13/18 16:55 Shock penicillin Allergy Anaphylactic Verified 06/13/18 16:55 Shock shellfish derived Allergy Anaphylactic Verified 06/13/18 16:55 Shock beer Allergy Anaphylactic Uncoded 06/13/18 16:55 Shock environmental Allergy Itching Uncoded 06/13/18 16:55 Home Meds: Home Meds Fluticasone Propionate [Flonase] 2 spray NASBOTH BID 06/27/15 [History] Albuterol Sulfate [Ventolin Hfa] 2 puff INH Q4H PRN 10/29/15 [History] Multivitamin 1 tab PO DAILY 10/29/15 [History] metFORMIN [Glucophage] 1,000 mg PO DAILY 11/26/17 [History] atorvaSTATin [Lipitor] 20 mg PO BEDTIME 02/22/18 [History] Past Medical History HEENT History: Reports: None Cardiovascular History: Reports: High Cholesterol Respiratory History: Reports: Asthma Gastrointestinal History: Reports: None Genitourinary History: Reports: Other (See Below) Other Genitourinary History: PCOS 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 Musculoskeletal History: Reports: Fracture Neurological History: Reports: None Psychiatric History: Reports: None Endocrine/Metabolic History: Reports: Diabetes, Type II Hematologic History: Reports: None Immunologic History: Reports: None Oncologic (Cancer) History: Reports: None Dermatologic History: Reports: None - Infectious Disease History Infectious Disease History: Reports: None - Past Surgical History Head Surgeries/Procedures: Reports: None HEENT Surgical History: Reports: Adenoidectomy, Tonsillectomy Female Surgical History: Reports: Section Musculoskeletal Surgical History: Reports: Shoulder Surgery, Other (See Below) Other Musculoskeletal Surgeries/Procedures:: ankle surgery Social & Family History - Family History Family Medical History: Noncontributory HEENT: Reports: None Cardiac: Reports: None Respiratory: Reports: None GI: Reports: None : Reports: None OBGYN: Reports: None Musculoskeletal: Reports: None Neurological: Reports: None Endocrine/Metabolic: Reports: None Hematologic: Reports: None - Caffeine Use Caffeine Use: Reports: Coffee, Soda - Living Situation & Occupation Living situation: Reports: , with Family Occupation: Employed ED ROS ALLERGIC REACTION - Review of Systems Review Of Systems: ROS reveals no pertinent complaints other than HPI. ED EXAM GENERAL NO PERIP PULSE - Physical Exam Exam: See Below Exam Limited By: No Limitations General Appearance: Alert, WD/WN, No Apparent Distress, Obese Eye Exam: Bilateral Eye: Normal Inspection Ears: Normal External Exam, Normal Canal, Hearing Grossly Normal, Normal TMs Nose: Normal Inspection, Normal Mucosa, No Blood Throat/Mouth: Normal Inspection, Normal Lips, Normal Teeth, Normal Gums, Normal Oropharynx, Normal Voice, No Airway Compromise Head: Atraumatic, Normocephalic Neck: Normal Inspection, Supple, Non-Tender, Full Range of Motion Respiratory/Chest: No Respiratory Distress, No Accessory Muscle Use, Chest Non- Tender, Wheezing (mild exp. wheezes). No: Crackles, Rales, Rhonchi, Stridor, Retractions, Splinting Cardiovascular: Regular Rate, Rhythm, No Edema, No Murmur, Tachycardia GI/Abdominal: Normal Bowel Sounds, Soft, Non-Tender Back Exam: Normal Inspection Extremities: Normal Inspection, Normal Range of Motion, Non-Tender, No Pedal Edema, Normal Capillary Refill Neurological: Alert, Oriented, CN II-XII Intact, Normal Cognition, Normal Gait, No Motor/Sensory Deficits Psychiatric: Normal Affect, Normal Mood Skin Exam: Warm, Dry, Intact, Normal Color, No Rash Course - Vital Signs Last Recorded V/S: Last Vital Signs Temp 37.1 C 06/13/18 16:52 Pulse 110 H 06/13/18 16:52 Resp 18 06/13/18 16:52 BP 128/84 06/13/18 16:52 Pulse Ox 99 06/13/18 16:52 - Orders/Labs/Meds Orders: Active Orders 24 hr Category Date Time Status Peripheral IV Care [RC] . DIRECTED Care 06/13/18 17:02 Active RT Aerosol Therapy [RC] ASDIRECTED Care 06/13/18 17:02 Active Sodium Chloride 0.9% [Saline Flush] Med 06/13/18 17:02 Active 10 ml FLUSH ASDIRECTED PRN Peripheral IV Insertion Adult [OM.PC] Stat Oth 06/13/18 17:01 Ordered Medication Orders Sodium Chloride (Saline Flush) 10 ml FLUSH ASDIRECTED PRN PRN Reason: Keep Vein Open Last Admin: 06/13/18 17:16 Dose: 10 ml Meds: Medications Generic Name Dose Route Start Last Admin Trade Name Freq PRN Reason Stop Dose Admin Sodium Chloride 10 ml 06/13/18 17:02 06/13/18 17:16 Saline Flush FLUSH 10 ml ASDIRECTED PRN Administration Keep Vein Open Discontinued Medications Generic Name Dose Route Start Last Admin Trade Name Freq PRN Reason Stop Dose Admin Albuterol 2.5 mg 06/13/18 17:01 06/13/18 17:06 Proventil Neb Soln NEB 06/13/18 17:02 2.5 mg ONETIME ONE Administration Albuterol Confirm 06/13/18 17:03 06/13/18 17:06 Proventil Neb Soln Administered 06/13/18 17:04 Not Given Dose 2.5 mg .ROUTE .STK-MED ONE Diphenhydramine HCl 25 mg 06/13/18 17:01 06/13/18 17:15 Benadryl IVPUSH 06/13/18 17:02 25 mg ONETIME ONE Administration Methylprednisolone Sodium Succinate 125 mg 06/13/18 17:01 06/13/18 17:16 Solu-Medrol IVPUSH 06/13/18 17:02 125 mg ONETIME ONE Administration Departure - Departure Time of Disposition: 17:43 Disposition: Home, Self-Care 01 Condition: Good Clinical Impression: Food allergy - Discharge Information Instructions: Food Allergy, [id number] Forms: ED Department Discharge Additional Instructions: RX: Prednisone 20mg. Over the counter Zyrtec 10mg take one tablet twice daily for at least 3 days. Continue her Albuterol inhaler as prescribed. Return to ER if worse at any time. - My Orders Last 24 Hours: My Active Orders 06/13/18 17:01 Peripheral IV Insertion Adult [OM.PC] Stat 06/13/18 17:02 Peripheral IV Care [RC] . DIRECTED RT Aerosol Therapy [RC] ASDIRECTED Sodium Chloride 0.9% [Saline Flush] 10 ml FLUSH ASDIRECTED PRN - Assessment/Plan Last 24 Hours: My Active Orders 06/13/18 17:01 Peripheral IV Insertion Adult [OM.PC] Stat 06/13/18 17:02 Peripheral IV Care [RC] . DIRECTED RT Aerosol Therapy [RC] ASDIRECTED Sodium Chloride 0.9% [Saline Flush] 10 ml FLUSH ASDIRECTED PRN I have read and agree with the documentation that has been completed regarding this visit. By signing this record, I attest that the documentation was completed in my physical presence and is an accurate record of the encounter.
[2018-06-13 17:56] VITALS: BP 109/64
== END 2018-06-13 17:52 | disposition home or self-care (01) ==
LOC: DL.ED 16:50
DX: T78.1XXA Other adverse food reactions, not elsewhere classified, initial encounter (principal); R22.1 Localized swelling, mass and lump, neck; R06.2 Wheezing; E11.9 Type 2 diabetes mellitus without complications; Z88.0 Allergy status to penicillin; Z91.013 Allergy to seafood; Z91.09 Other allergy status, other than to drugs and biological substances; Z79.84 Long term (current) use of oral hypoglycemic drugs; Z79.899 Other long term (current) drug therapy; Z91.010 Allergy to peanuts
CPT/HCPCS: 96374; 96375; 99284; J1200; J2930; J7050; J7613-GY

== ENCOUNTER 2018-07-01 19:41 | Emergency (ER) | payer BC ==
[2018-07-01 20:09] VITALS: BP 113/74
[2018-07-01] MEDS ORDERED: Albuterol/Ipratropium 3.0-0.5 MG/3 ML Neb Soln NEB ONE (20:10)
[2018-07-01] MEDS ORDERED: Codeine/Promethazine 10-6.25 MG/5 ML Syrup 5 ML UD Cup PO ONE (20:10)
[2018-07-01] MEDS ORDERED: methylPREDNISolone Sodium Succinate 125 MG/2 ML SDV IM ONE (20:10)
--- NOTE | 2018-07-01 20:13 | EDM.PDOC ---
ED HPI GENERAL MEDICAL PROBLEM - General Chief Complaint: Respiratory Problem Stated Complaint: HARD TIME BREATHING [id number] Time Seen by Provider: 07/01/18 20:10 Source of Information: Reports: Patient History Limitations: Reports: No Limitations - History of Present Illness INITIAL COMMENTS - FREE TEXT/NARRATIVE: been coughing and wheezing past few days saw clinic placed on doxy. 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 gives h/o asthma and has neb at home. Treatments [facility]UNIC[address] [employer] MAGISTRATE: Reports: Breathing Treatments - Related Data Allergies Allergy/AdvReac Type Severity Reaction Status Date / Time peanut Allergy Anaphylactic Verified 07/01/18 20:09 Shock penicillin Allergy Anaphylactic Verified 07/01/18 20:09 Shock shellfish derived Allergy Anaphylactic Verified 07/01/18 20:09 Shock beer Allergy Anaphylactic Uncoded 07/01/18 20:09 Shock environmental Allergy Itching Uncoded 07/01/18 20:09 Home Meds: Home Meds Fluticasone Propionate [Flonase] 2 spray NASBOTH BID 06/27/15 [History] Albuterol Sulfate [Ventolin Hfa] 2 puff INH Q4H PRN 10/29/15 [History] Multivitamin 1 tab PO DAILY 10/29/15 [History] metFORMIN [Glucophage] 1,000 mg PO DAILY 11/26/17 [History] atorvaSTATin [Lipitor] 20 mg PO BEDTIME 02/22/18 [History] Past Medical History HEENT History: Reports: None Cardiovascular History: Reports: High Cholesterol Respiratory History: Reports: Asthma Gastrointestinal History: Reports: None Genitourinary History: Reports: Other (See Below) Other Genitourinary History: PCOS 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: Polycystic Ovaries Musculoskeletal History: Reports: Fracture Neurological History: Reports: None Psychiatric History: Reports: None Endocrine/Metabolic History: Reports: Diabetes, Type II Hematologic History: Reports: None Immunologic History: Reports: None Oncologic (Cancer) History: Reports: None Dermatologic History: Reports: None - Infectious Disease History Infectious Disease History: Reports: None - Past Surgical History Head Surgeries/Procedures: Reports: None HEENT Surgical History: Reports: Adenoidectomy, Tonsillectomy Female Surgical History: Reports: Section Musculoskeletal Surgical History: Reports: Shoulder Surgery, Other (See Below) Other Musculoskeletal Surgeries/Procedures:: ankle surgery Social & Family History - Family History Family Medical History: Noncontributory HEENT: Reports: None Cardiac: Reports: None Respiratory: Reports: None GI: Reports: None : Reports: None OBGYN: Reports: None Musculoskeletal: Reports: None Neurological: Reports: None Endocrine/Metabolic: Reports: None Hematologic: Reports: None - Tobacco Use Smoking Status *Q: Never Smoker - Caffeine Use Caffeine Use: Reports: Coffee, Soda - Recreational Drug Use Recreational Drug Use: No - Living Situation & Occupation Living situation: Reports: , with Family Occupation: Employed ED ROS GENERAL - Review of Systems Review Of Systems: ROS reveals no pertinent complaints other than HPI. ED EXAM, GENERAL - Physical Exam Exam: See Below Exam Limited By: No Limitations General Appearance: Alert, WD/WN, Mild Distress, Other (cough spasm) Ears: Hearing Grossly Normal Throat/Mouth: Normal Voice, No Airway Compromise Head: Atraumatic Neck: Non-Tender, Full Range of Motion Respiratory/Chest: No Accessory Muscle Use, Decreased Breath Sounds, Rhonchi, Wheezing. No: Retractions Cardiovascular: Regular Rate, Rhythm GI/Abdominal: Soft, Non-Tender Neurological: Alert, Oriented, Normal Cognition, Normal Gait, No Motor/Sensory Deficits Psychiatric: Normal Affect, Normal Mood Skin Exam: Warm, Dry, Normal Color Lymphatic: No Adenopathy Course - Vital Signs Last Recorded V/S: Last Vital Signs Temp 37.1 C 07/01/18 20:01 Pulse 113 H 07/01/18 20:01 Resp 21 H 07/01/18 20:01 BP 113/74 07/01/18 20:01 Pulse Ox 99 07/01/18 20:01 - Orders/Labs/Meds Orders: Active Orders 24 hr Category Date Time Status RT Aerosol Therapy [RC] ASDIRECTED Care 07/01/18 20:10 Active Meds: Medications Discontinued Medications Generic Name Dose Route Start Last Admin Trade Name Freq PRN Reason Stop Dose Admin Albuterol/Ipratropium 3 ml 07/01/18 20:10 07/01/18 20:19 Duoneb 3.0-0.5 Mg/3 Ml NEB 07/01/18 20:11 3 ml ONETIME ONE Administration Methylprednisolone Sodium Succinate 125 mg 07/01/18 20:10 07/01/18 20:19 Solu-Medrol IM 07/01/18 20:11 125 mg ONETIME ONE Administration Promethazine HCl/Codeine 5 ml 07/01/18 20:10 07/01/18 20:18 Phenergan With Codeine PO 07/01/18 20:11 5 ml ONETIME ONE Administration Departure - Departure Time of Disposition: 20:40 Disposition: Home, Self-Care 01 Condition: Good Clinical Impression: Bronchospasm, acute Asthma with acute exacerbation Qualifiers: Asthma severity: moderate Asthma persistence: persistent Qualified Code(s): J45.41 - Moderate persistent asthma with (acute) exacerbation - Discharge Information Instructions: Bronchospasm, Adult, [id number] Forms: ED Department Discharge Additional Instructions: 1) continue nebs 3 to 4 times daily for cough and wheeze 2) recheck if there is any change or concern rx given; medrol dospak phenergan codeine syrup qid prn - My Orders Last 24 Hours: My Active Orders 07/01/18 20:10 RT Aerosol Therapy [RC] ASDIRECTED - Assessment/Plan Last 24 Hours: My Active Orders 07/01/18 20:10 RT Aerosol Therapy [RC] ASDIRECTED
== END 2018-07-01 20:40 | disposition home or self-care (01) ==
LOC: DL.ED 19:41
DX: J45.41 Moderate persistent asthma with (acute) exacerbation (principal); E11.9 Type 2 diabetes mellitus without complications; E78.00 Pure hypercholesterolemia, unspecified; Z79.84 Long term (current) use of oral hypoglycemic drugs; Z79.899 Other long term (current) drug therapy; Z91.010 Allergy to peanuts; Z88.0 Allergy status to penicillin; Z91.018 Allergy to other foods; Z91.013 Allergy to seafood; Z91.09 Other allergy status, other than to drugs and biological substances
CPT/HCPCS: 99284; A9270; J2930; J7620-GY

== ENCOUNTER 2018-10-23 19:10 | Emergency (ER) | payer BC ==
[2018-10-23 20:12] VITALS: BP 121/77
--- NOTE | 2018-10-23 20:38 | EDM.PDOC ---
ED HPI GENERAL MEDICAL PROBLEM - General Chief Complaint: ENT Problem Stated Complaint: SINUSES, EARS, LT EAR POUNDING Time Seen by Provider: 10/23/18 20:15 Source of Information: Reports: Patient History Limitations: Reports: No Limitations - History of Present Illness INITIAL COMMENTS - FREE TEXT/NARRATIVE: cough, congestion, sinus pain and left ear pain OTC cold medications not helping. Low grade fevers past few days Left Ear Pain Score (Numeric/FACES): 5 - Related Data Allergies Allergy/AdvReac Type Severity Reaction Status Date / Time peanut Allergy Anaphylactic Verified 10/23/18 20:12 Shock penicillin Allergy Anaphylactic Verified 10/23/18 20:12 Shock shellfish derived Allergy Anaphylactic Verified 10/23/18 20:12 Shock beer Allergy Anaphylactic Uncoded 10/23/18 20:12 Shock environmental Allergy Itching Uncoded 10/23/18 20:12 Home Meds: Home Meds Fluticasone Propionate [Flonase] 2 spray NASBOTH BID 06/27/15 [History] Albuterol Sulfate [Ventolin Hfa] 2 puff INH Q4H PRN 10/29/15 [History] Multivitamin 1 tab PO DAILY 10/29/15 [History] metFORMIN [Glucophage] 1,000 mg PO BID 11/26/17 [History] atorvaSTATin [Lipitor] 20 mg PO BEDTIME 02/22/18 [History] Budesonide/Formoterol [Symbicort 160-4.5 MCG] 1 puff INH BID 10/23/18 [History] Montelukast [Singulair] 5 mg PO DAILY 10/23/18 [History] Past Medical History HEENT History: Reports: None Cardiovascular History: Reports: High Cholesterol Respiratory History: Reports: Asthma Gastrointestinal History: Reports: None Genitourinary History: Reports: Other (See Below) Other Genitourinary History: 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 Musculoskeletal History: Reports: Fracture Neurological History: Reports: None Psychiatric History: Reports: None Endocrine/Metabolic History: Reports: Diabetes, Type II, Obesity/BMI 30+ Hematologic History: Reports: None Immunologic History: Reports: None Oncologic (Cancer) History: Reports: None Dermatologic History: Reports: None - Infectious Disease History Infectious Disease History: Reports: None - Past Surgical History Head Surgeries/Procedures: Reports: None HEENT Surgical History: Reports: Adenoidectomy, Tonsillectomy Female Surgical History: Reports: Section Musculoskeletal Surgical History: Reports: Shoulder Surgery, Other (See Below) Other Musculoskeletal Surgeries/Procedures:: ankle surgery Social & Family History - Family History Family Medical History: Noncontributory HEENT: Reports: None Cardiac: Reports: None Respiratory: Reports: None GI: Reports: None : Reports: None OBGYN: Reports: None Musculoskeletal: Reports: None Neurological: Reports: None Endocrine/Metabolic: Reports: None Hematologic: Reports: None - Tobacco Use Smoking Status *Q: Never Smoker Second Hand Smoke Exposure: No - Caffeine Use Caffeine Use: Reports: Coffee, Soda - Recreational Drug Use Recreational Drug Use: No - Living Situation & Occupation Living situation: Reports: , with Family Occupation: Employed ED ROS ENT - Review of Systems Review Of Systems: See Below Constitutional: Reports: Fever HEENT: Reports: Rhinitis, Sinus Problem Respiratory: Reports: Cough Cardiovascular: Reports: No Symptoms GI/Abdominal: Reports: No Symptoms Musculoskeletal: Reports: No Symptoms Skin: Reports: Dryness Neurological: Reports: Headache (sinus type) ED EXAM, ENT - Physical Exam Exam: See Below Exam Limited By: No Limitations General Appearance: Alert, No Apparent Distress Eye Exam: Bilateral Eye: EOMI, PERRL Ears: Normal External Exam Nose: Normal Inspection Mouth/Throat: Normal Inspection Head: Atraumatic, Normocephalic, Facial Tenderness, Sinus Tenderness Neck: Lymphadenopathy (L) Respiratory/Chest: No Respiratory Distress Cardiovascular: Normal Peripheral Pulses, Regular Rate, Rhythm GI/Abdominal: Normal Bowel Sounds, Soft Extremities: Normal Inspection, Normal Range of Motion Neurological: Alert, Oriented Psychiatric: Normal Affect, Normal Mood Skin: Warm, Dry, Intact, Pallor Course - Vital Signs Last Recorded V/S: Last Vital Signs Temp 99.8 F 10/23/18 20:10 Pulse 120 H 10/23/18 20:10 Resp 18 10/23/18 20:10 BP 121/77 10/23/18 20:10 Pulse Ox 98 10/23/18 20:10 - Orders/Labs/Meds Meds: Medications Discontinued Medications Generic Name Dose Route Start Last Admin Trade Name Freq PRN Reason Stop Dose Admin Doxycycline Hyclate 100 mg 10/23/18 20:39 10/23/18 20:44 Vibramycin PO 10/23/18 20:40 100 mg ONETIME ONE Administration Departure - Departure Time of Disposition: 20:37 Disposition: Home, Self-Care 01 Condition: Good Clinical Impression: Otitis media Qualifiers: Otitis media type: suppurative Chronicity: acute Laterality: left Recurrence: not specified as recurrent Spontaneous tympanic membrane rupture: without spontaneous rupture Qualified Code(s): H66.002 - Acute suppurative otitis media without spontaneous rupture of ear drum, left ear Sinusitis Qualifiers: Sinusitis location: pansinusitis Chronicity: acute Recurrence: non-recurrent Qualified Code(s): J01.40 - Acute pansinusitis, unspecified - Discharge Information *PRESCRIPTION DRUG MONITORING PROGRAM REVIEWED*: No *COPY OF PRESCRIPTION DRUG MONITORING REPORT IN PATIENT ALEJANDRA: No Instructions: Sinusitis, Adult, [id number] Referrals: Pennie Farias MD [Primary Care Provider] - Forms: ED Department Discharge Additional Instructions: doxycycline 100mg one twice daily for 10 days increase fluid intake humidification muccinex per package instructions clinic follow up if not improving
[2018-10-23] MEDS ORDERED: Doxycycline 100 MG Cap PO ONE (20:39)
== END 2018-10-23 20:46 | disposition home or self-care (01) ==
LOC: DL.ED 19:10
DX: H66.002 Acute suppurative otitis media without spontaneous rupture of ear drum, left ear (principal); E11.9 Type 2 diabetes mellitus without complications; E66.9 Obesity, unspecified; Z91.018 Allergy to other foods; Z91.013 Allergy to seafood
CPT/HCPCS: 99283; A9270

== ENCOUNTER 2019-08-05 12:41 | Emergency (ER) | payer BC ==
[2019-08-05 12:59] VITALS: BP 137/73; PULSE 96
--- NOTE | 2019-08-05 14:15 | CR ---
EXAMINATION: Tibia Fibula Lt SEX: Female AGE: 38 years CLINICAL HISTORY: 38-year-old female who "twisted" left leg and now severe pain back of left calf. (History left ankle fracture) INTERPRETATION: 1. Old healed fracture deformity and callus distal diaphysis of the left fibula (new since comparison film June). 2. Symmetric spacing normal-appearing knee joint without sign of fracture dislocation or radiopaque loose joint body. 3. No sign of acute long bone tib/fib fracture. 4. No foreign bodies, abnormal periostitis, or pathologic skeletal lesion. CONCLUSION: No acute fracture or dislocation proximal left lower extremity and knee.
--- NOTE | 2019-08-05 14:17 | CR ---
EXAMINATION: Ankle 2V Lt SEX: Female AGE: 38 years CLINICAL HISTORY: 38-year-old female twisted leg, severe pain back of left calf. "No proximal lung bone fracture or knee dislocation" on LLE films today. INTERPRETATION: 1. Old healed fracture deformity distal diaphysis left fibula and medial malleolus of the distal left tibia. 2. Reactive arthritic changes tibiotalar joint old evulsion posterior malleolus distal left tibia. 3. No sign of acute fracture or dislocation left ankle. 4. Tiny heel spurs at the insertion plantar aponeurosis and Achilles tendon the os calcis. 5. No foreign bodies. CONCLUSION: No acute fracture or left ankle joint dislocation.
--- NOTE | 2019-08-05 14:29 | EDM.PDOC ---
ED HPI GENERAL MEDICAL PROBLEM - General Chief Complaint: Lower Extremity Injury/Pain Stated Complaint: INJURED LEFT LEG Time Seen by Provider: 08/05/19 13:15 Source of Information: Reports: Patient, RN, RN Notes Reviewed History Limitations: Reports: No Limitations - History of Present Illness INITIAL COMMENTS - FREE TEXT/NARRATIVE: patient presents to ER with left calf pain. She states she had a few drinks last night while playing darts, was turning and felt she injured her lower leg and ankle. Pain has increased throughout the night, and patient states it is painful for anything to touch the back of the period patient states she has fractured the left ankle in the past. Patient states she is able to bear minimum weight on the left leg.Very minimal swelling to the left calf. No redness or warmth noted at the area. Onset: Sudden Onset Date: 08/04/19 Duration: Constant Location: Reports: Lower Extremity, Left Quality: Reports: Pressure, Sharp, Throbbing Severity: Moderate Improves with: Reports: None Worsens with: Reports: None Left Leg Pain Score (Numeric/FACES): 8 - Related Data Allergies Allergy/AdvReac Type Severity Reaction Status Date / Time peanut Allergy Anaphylactic Verified 08/05/19 12:59 Shock penicillin Allergy Anaphylactic Verified 08/05/19 12:59 Shock shellfish derived Allergy Anaphylactic Verified 08/05/19 12:59 Shock beer Allergy Anaphylactic Uncoded 08/05/19 12:59 Shock environmental Allergy Itching Uncoded 08/05/19 12:59 Home Meds: Home Meds Albuterol Sulfate [Ventolin Hfa] 2 puff INH Q4H PRN 10/29/15 [History] Multivitamin 1 tab PO DAILY 10/29/15 [History] metFORMIN [Glucophage] 1,000 mg PO BID 11/26/17 [History] Budesonide/Formoterol [Symbicort 160-4.5 MCG] 1 puff INH BID 10/23/18 [History] Montelukast [Singulair] 5 mg PO DAILY 10/23/18 [History] Ibuprofen 600 mg PO ASDIRECTED PRN 08/05/19 [History] Rosuvastatin Calcium 5 mg PO ASDIRECTED 08/05/19 [History] Past Medical History HEENT History: Reports: None Cardiovascular History: Reports: High Cholesterol Respiratory History: Reports: Asthma Gastrointestinal History: Reports: None Genitourinary History: Reports: Other (See Below) Other Genitourinary History: PCOS 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 Musculoskeletal History: Reports: Fracture Neurological History: Reports: None Psychiatric History: Reports: None Endocrine/Metabolic History: Reports: Diabetes, Type II, Obesity/BMI 30+ Hematologic History: Reports: None Immunologic History: Reports: None Oncologic (Cancer) History: Reports: None Dermatologic History: Reports: None - Infectious Disease History Infectious Disease History: Reports: None - Past Surgical History Head Surgeries/Procedures: Reports: None HEENT Surgical History: Reports: Adenoidectomy, Tonsillectomy Female Surgical History: Reports: Section Musculoskeletal Surgical History: Reports: Shoulder Surgery, Other (See Below) Other Musculoskeletal Surgeries/Procedures:: ankle surgery Social & Family History - Family History Family Medical History: Noncontributory HEENT: Reports: None Cardiac: Reports: None Respiratory: Reports: None GI: Reports: None : Reports: None OBGYN: Reports: None Musculoskeletal: Reports: None Neurological: Reports: None Endocrine/Metabolic: Reports: None Hematologic: Reports: None - Tobacco Use Smoking Status *Q: Never Smoker Second Hand Smoke Exposure: No - Caffeine Use Caffeine Use: Reports: Coffee, Soda - Recreational Drug Use Recreational Drug Use: No - Living Situation & Occupation Living situation: Reports: , with Family Occupation: Employed Review of Systems - Review of Systems Review Of Systems: ROS reveals no pertinent complaints other than HPI. ED EXAM, GENERAL - Physical Exam Exam: See Below Exam Limited By: No Limitations General Appearance: Alert, WD/WN, Mild Distress Eye Exam: Bilateral Eye: EOMI, Normal Inspection Ears: Normal External Exam, Hearing Grossly Normal Nose: Normal Inspection Throat/Mouth: Normal Inspection, Normal Voice, No Airway Compromise Head: Atraumatic, Normocephalic Neck: Normal Inspection, Supple, Non-Tender, Full Range of Motion Respiratory/Chest: No Respiratory Distress, Lungs Clear, Normal Breath Sounds, No Accessory Muscle Use, Chest Non-Tender Cardiovascular: Normal Peripheral Pulses, Regular Rate, Rhythm, No Edema, No Gallop, No JVD, No Murmur, No Rub Peripheral Pulses: 2+: Radial (L), Radial (R), Dorsalis Pedis (L), Dorsalis Pedis (R) GI/Abdominal: Normal Bowel Sounds, Soft, Non-Tender (Female) Exam: Deferred Rectal (Female) Exam: Deferred Back Exam: Normal Inspection, Full Range of Motion, NT Extremities: Leg Pain (left calf), Other (minimal swelling to the left calf). No: Increased Warmth, Redness Neurological: Alert, Oriented, CN II-XII Intact, Normal Cognition, Normal Reflexes, No Motor/Sensory Deficits Psychiatric: Normal Affect, Normal Mood Skin Exam: Warm, Dry, Intact, Normal Color, No Rash Lymphatic: No Adenopathy Course - Vital Signs Last Recorded V/S: Last Vital Signs Temp 98.1 F 08/05/19 12:53 Pulse 96 08/05/19 12:53 Resp 16 08/05/19 12:53 BP 137/73 08/05/19 12:53 Pulse Ox 98 08/05/19 12:53 - Radiology Interpretation Free Text/Narrative:: Left ankle xray: old healed fracture deformity distal diaphysis left fibula and medial malleolus of the distal left tibia. Reactive arthritic changes tibiotalar joint old evulsion posterior malleolus distal left tibia. no sign of acute fracture or dislocation left ankle. Tiny heel spurs at the insertion plantar aponeurosis and Achilles tendon the os calcis. no foreign bodies. no acute fracture left ankle joint dislocation Left tib/fib xray: no acute fracture or dislocation proximal left lower extremity and knee. See rad report Departure - Departure Time of Disposition: 14:38 Disposition: Home, Self-Care 01 Condition: Fair Clinical Impression: Muscle strain - Discharge Information *PRESCRIPTION DRUG MONITORING PROGRAM REVIEWED*: No *COPY OF PRESCRIPTION DRUG MONITORING REPORT IN PATIENT ALEJANDRA: No Instructions: Muscle Strain, [id number] Referrals: Pennie Farias MD [Primary Care Provider] - Forms: ED Department Discharge Additional Instructions: keep left lower leg compressed with Héctor wrap or sleeve use crutches to keep weight off the left leg Follow-up in the clinic with your primary care provider this week Elevate and ice the leg as tolerated Rest
== END 2019-08-05 14:58 | disposition home or self-care (01) ==
LOC: DL.ED 12:41
DX: S86.912A Strain of unspecified muscle(s) and tendon(s) at lower leg level, left leg, initial encounter (principal); J45.909 Unspecified asthma, uncomplicated; E78.00 Pure hypercholesterolemia, unspecified; E11.9 Type 2 diabetes mellitus without complications; E66.9 Obesity, unspecified; Z91.010 Allergy to peanuts; Z88.0 Allergy status to penicillin; Z91.013 Allergy to seafood; Z91.018 Allergy to other foods; Z91.09 Other allergy status, other than to drugs and biological substances; Z79.899 Other long term (current) drug therapy; Z79.84 Long term (current) use of oral hypoglycemic drugs; Z68.30 Body mass index [BMI] 30.0-30.9, adult; X50.1XXA Overexertion from prolonged static or awkward postures, initial encounter; Y93.01 Activity, walking, marching and hiking
CPT/HCPCS: 73590-LT; 73610-LT; 99283-25

== ENCOUNTER 2020-05-26 19:53 | Emergency (ER) | payer BC ==
[2020-05-26 19:59] VITALS: PULSE 71
[2020-05-26] MEDS ORDERED: Clindamycin Phosphate 900 MG in Sodium Chloride 0.9% 100 ML IV ONE (20:12)
--- NOTE | 2020-05-26 20:16 | EDM.PDOC ---
ED HPI GENERAL MEDICAL PROBLEM - General Chief Complaint: Skin Complaint Stated Complaint: CELLULITUS ON STOMACH. DRAINING Time Seen by Provider: 05/26/20 20:13 Source of Information: Reports: Patient History Limitations: Reports: No Limitations - History of Present Illness INITIAL COMMENTS - FREE TEXT/NARRATIVE: being Tx with cephalex for infected wound on abd since Thurs, not getting better, been feeling nauseous and feverish 99 @ home. 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 - Related Data Allergies Allergy/AdvReac Type Severity Reaction Status Date / Time peanut Allergy Anaphylactic Verified 05/26/20 20:07 Shock penicillin Allergy Anaphylactic Verified 05/26/20 20:07 Shock shellfish derived Allergy Anaphylactic Verified 05/26/20 20:07 Shock beer Allergy Anaphylactic Uncoded 05/26/20 20:07 Shock environmental Allergy Itching Uncoded 05/26/20 20:07 Home Meds: Home Meds Albuterol Sulfate [Ventolin Hfa] 2 puff INH Q4H PRN 10/29/15 [History] Multivitamin 1 tab PO DAILY 10/29/15 [History] metFORMIN [Glucophage] 1,000 mg PO BID 11/26/17 [History] Budesonide/Formoterol [Symbicort 160-4.5 MCG] 1 puff INH BID 10/23/18 [History] Montelukast [Singulair] 5 mg PO DAILY 10/23/18 [History] Ibuprofen 600 mg PO ASDIRECTED PRN 08/05/19 [History] Rosuvastatin Calcium 5 mg PO ASDIRECTED 08/05/19 [History] FLUoxetine [PROzac] 40 mg PO DAILY 05/26/20 [History] Past Medical History HEENT History: Reports: None Cardiovascular History: Reports: High Cholesterol Respiratory History: Reports: Asthma Gastrointestinal History: Reports: None Genitourinary History: Reports: Other (See Below) Other Genitourinary History: PCOS 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: Polycystic 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 Musculoskeletal History: Reports: Fracture Neurological History: Reports: None Psychiatric History: Reports: None Endocrine/Metabolic History: Reports: Diabetes, Type II, Obesity/BMI 30+ Hematologic History: Reports: None Immunologic History: Reports: None Oncologic (Cancer) History: Reports: None Dermatologic History: Reports: None - Infectious Disease History Infectious Disease History: Reports: None - Past Surgical History Head Surgeries/Procedures: Reports: None HEENT Surgical History: Reports: Adenoidectomy, Tonsillectomy Female Surgical History: Reports: Section Musculoskeletal Surgical History: Reports: Shoulder Surgery, Other (See Below) Other Musculoskeletal Surgeries/Procedures:: ankle surgery Social & Family History - Family History Family Medical History: Noncontributory HEENT: Reports: None Cardiac: Reports: None Respiratory: Reports: None GI: Reports: None : Reports: None OBGYN: Reports: None Musculoskeletal: Reports: None Neurological: Reports: None Endocrine/Metabolic: Reports: None Hematologic: Reports: None - Tobacco Use Smoking Status *Q: Never Smoker Second Hand Smoke Exposure: No - Caffeine Use Caffeine Use: Reports: Coffee, Tea - Alcohol Use Date of Last Drink: 05/24/20 - Recreational Drug Use Recreational Drug Use: No - Living Situation & Occupation Living situation: Reports: , with Family Occupation: Employed ED ROS GENERAL - Review of Systems Review Of Systems: Comprehensive ROS is negative, except as noted in HPI. ED EXAM, SKIN/RASH Exam: See Below Exam Limited By: No Limitations General Appearance: Alert, WD/WN, Mild Distress, Other (disocmfort) Ears: Hearing Grossly Normal Throat/Mouth: Normal Voice, No Airway Compromise Head: Atraumatic Neck: Non-Tender, Full Range of Motion Respiratory/Chest: No Respiratory Distress Cardiovascular: Regular Rate, Rhythm GI/Abdominal: Soft, Tender (infected wound local erythema, no lymphangitis), Other Neurological: Alert, Oriented, Normal Cognition, Normal Gait, No Motor/Sensory Deficits Psychiatric: Normal Affect, Normal Mood Skin: Warm, Dry, Normal Color Location, Skin: Abdomen Characteristics: Erythematous Associated features: Warmth, Tenderness, Swelling, Inflammation. No: Lymphangitis, Crusting, Weeping Course - Vital Signs Last Recorded V/S: Last Vital Signs Temp 36.8 C 05/26/20 19:58 Pulse 71 05/26/20 19:58 Resp 19 05/26/20 19:58 BP 131/80 05/26/20 19:58 Pulse Ox 100 05/26/20 19:58 - Orders/Labs/Meds Orders: Active Orders 24 hr Category Date Time Status CULTURE BLOOD [BC] Stat Lab 05/26/20 20:16 Results Labs: Laboratory Tests 05/26/20 05/26/20 05/26/20 Range/Units 20:16 20:16 20:16 WBC 8.2 (5.0-10.0) 10^3/uL RBC 5.73 H (4.2-5.4) 10^6/uL Hgb 12.6 (12.0-16.0) g/dL Hct 41.0 (37.0-47.0) % MCV 71.6 L D (80-100) fL MCH 22.0 L (27.0-34.0) pg MCHC 30.7 L (33.0-35.0) g/dL Plt Count 320 (150-450) 10^3/uL Neut % (Auto) 63.4 (42.2-75.2) % Lymph % (Auto) 27.6 (20.5-50.1) % [place] % (Auto) 5.9 (2-8) % Eos % (Auto) 2.6 (1.0-3.0) % Baso % (Auto) 0.5 (0.0-1.0) % Sodium 137 (136-145) mmol/L Potassium 4.0 (3.5-5.1) mmol/L Chloride 99 (98-107) mmol/L Carbon Dioxide 27 (21-32) mmol/L Anion Gap 15.0 H (7-13) mEq/L BUN 14 (7-18) mg/dL Creatinine 1.21 H (0.55-1.02) mg/dL Est Cr Clr Drug Dosing 52.15 mL/min Estimated GFR (MDRD) 50 BUN/Creatinine Ratio 11.6 (No establ ref range) Glucose 181 H (74-99) mg/dL Lactic Acid 2.5 H* (0.4-2.0) mmol/L Calcium 8.8 (8.5-10.1) mg/dL Total Bilirubin 1.0 (0.2-1.0) mg/dL AST 69 H (15-37) U/L ALT 81 H (14-59) U/L Alkaline Phosphatase 57 (46-116) U/L Total Protein 7.3 (6.4-8.2) g/dL Albumin 3.9 (3.4-5.0) g/dL Globulin 3.4 Albumin/Globulin Ratio 1.1 Meds: Medications Discontinued Medications Generic Name Dose Route Start Last Admin Trade Name Freq PRN Reason Stop Dose Admin Clindamycin Phosphate 900 mg/ 106 mls @ 200 mls/hr 05/26/20 20:12 05/26/20 20:24 Sodium Chloride IV 05/26/20 20:43 200 mls/hr ONETIME ONE Administration - Re-Assessments/Exams Free Text/Narrative Re-Assessment/Exam: 05/26/20 20:58 results discussed with pt. Departure - Departure Time of Disposition: 20:59 Disposition: Home, Self-Care 01 Condition: Good Clinical Impression: Cellulitis Qualifiers: Site of cellulitis: trunk Site of cellulitis of trunk: abdominal wall Qualified Code(s): L03.311 - Cellulitis of abdominal wall - Discharge Information Instructions: Cellulitis, Adult, [id number] Forms: ED Department Discharge Additional Instructions: 1) keep area clean dry covered 2) follow up at clinic rx given; clindamycin 300mg qid x 40 Sepsis Event Note (ED) - Evaluation Sepsis Screening Result: No Definite Risk - Focused Exam Vital Signs: Vital Signs Temp Pulse Resp BP Pulse Ox 05/26/20 19:58 36.8 C 71 19 131/80 100 - My Orders Last 24 Hours: My Active Orders 05/26/20 20:16 CULTURE BLOOD [BC] Stat - Assessment/Plan Last 24 Hours: My Active Orders 05/26/20 20:16 CULTURE BLOOD [BC] Stat
[2020-05-26 21:01] VITALS: BP 123/76
== END 2020-05-26 21:05 | disposition home or self-care (01) ==
LOC: DL.ED 19:53
DX: L03.311 Cellulitis of abdominal wall (principal); E78.00 Pure hypercholesterolemia, unspecified; E11.9 Type 2 diabetes mellitus without complications; J45.909 Unspecified asthma, uncomplicated; E66.9 Obesity, unspecified; Z68.36 Body mass index [BMI] 36.0-36.9, adult; Z88.0 Allergy status to penicillin; Z91.010 Allergy to peanuts; Z91.013 Allergy to seafood; Z91.09 Other allergy status, other than to drugs and biological substances; Z90.89 Acquired absence of other organs; Z79.899 Other long term (current) drug therapy
CPT/HCPCS: 36415; 80053; 83605; 85025; 87040; 96365; 99283; J3490; J7050

== ENCOUNTER 2020-07-14 21:21 | Emergency (ER) | payer BC ==
[2020-07-14] MEDS ORDERED: Sodium Chloride 0.9% 1,000 ML IV ONE (21:38)
[2020-07-14] MEDS ORDERED: Famotidine 20 MG/2 ML SDV IVPUSH ONE (21:38)
[2020-07-14 22:08] LABS: ANION GAP 17.9 mEq/L (7-13)
[2020-07-14] MEDS ORDERED: methylPREDNISolone Sodium Succinate 125 MG/2 ML SDV IVPUSH ONE (22:10)
--- NOTE | 2020-07-14 22:36 | EDM.PDOC ---
ED HPI GENERAL MEDICAL PROBLEM - General Chief Complaint: Allergic Reaction Stated Complaint: ALGERGIC REACTION NECK. Time Seen by Provider: 07/14/20 21:35 Source of Information: Reports: Patient, RN, RN Notes Reviewed History Limitations: Reports: No Limitations - History of Present Illness INITIAL COMMENTS - FREE TEXT/NARRATIVE: Patient presents to ER with complaint of allergic reaction. Patient states when she awoke from a nap approximately 2 PM this afternoon she had a red rash to the anterior, central portion of her neck, and states as though she is swallowing nails. Patient states she does not feel any swelling of the tongue or the throat. States she has several allergies, but unsure what triggered this at this time. Patient states she has taken Benadryl twice, the last being 2 tablets at about 8:00. Denies any recent illness, nausea, vomiting, diarrhea, chest pains, shortness of breath. Patient admits to history of asthma. Onset: Today, Sudden Throat Pain Score (Numeric/FACES): 3 - Related Data Allergies Allergy/AdvReac Type Severity Reaction Status Date / Time peanut Allergy Anaphylactic Verified 07/14/20 21:28 Shock penicillin Allergy Anaphylactic Verified 07/14/20 21:28 Shock shellfish derived Allergy Anaphylactic Verified 07/14/20 21:28 Shock beer Allergy Anaphylactic Uncoded 07/14/20 21:28 Shock environmental Allergy Itching Uncoded 07/14/20 21:28 Home Meds: Home Meds Albuterol Sulfate [Ventolin Hfa] 2 puff INH Q4H PRN 10/29/15 [History] Multivitamin 1 tab PO DAILY 10/29/15 [History] metFORMIN [Glucophage] 1,000 mg PO BID 11/26/17 [History] Budesonide/Formoterol [Symbicort 160-4.5 MCG] 1 puff INH BID 10/23/18 [History] Montelukast [Singulair] 5 mg PO DAILY 10/23/18 [History] Ibuprofen 600 mg PO ASDIRECTED PRN 08/05/19 [History] Rosuvastatin Calcium 5 mg PO ASDIRECTED 08/05/19 [History] FLUoxetine [PROzac] 40 mg PO DAILY 05/26/20 [History] Past Medical History HEENT History: Reports: None Cardiovascular History: Reports: High Cholesterol Respiratory History: Reports: Asthma Gastrointestinal History: Reports: None Genitourinary History: Reports: Other (See Below) Other Genitourinary History: PCOS 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 Musculoskeletal History: Reports: Fracture Neurological History: Reports: None Psychiatric History: Reports: None Endocrine/Metabolic History: Reports: Diabetes, Type II, Obesity/BMI 30+ Hematologic History: Reports: None Immunologic History: Reports: None Oncologic (Cancer) History: Reports: None Dermatologic History: Reports: None - Infectious Disease History Infectious Disease History: Reports: None - Past Surgical History Head Surgeries/Procedures: Reports: None HEENT Surgical History: Reports: Adenoidectomy, Tonsillectomy Female Surgical History: Reports: Section Musculoskeletal Surgical History: Reports: Shoulder Surgery, Other (See Below) Other Musculoskeletal Surgeries/Procedures:: ankle surgery Social & Family History - Family History Family Medical History: Noncontributory HEENT: Reports: None Cardiac: Reports: None Respiratory: Reports: None GI: Reports: None : Reports: None OBGYN: Reports: None Musculoskeletal: Reports: None Neurological: Reports: None Endocrine/Metabolic: Reports: None Hematologic: Reports: None - Tobacco Use Smoking Status *Q: Never Smoker Second Hand Smoke Exposure: No - Caffeine Use Caffeine Use: Reports: Coffee, Tea - Recreational Drug Use Recreational Drug Use: No - Living Situation & Occupation Living situation: Reports: , with Family Occupation: Employed ED ROS ALLERGIC REACTION - Review of Systems Review Of Systems: Comprehensive ROS is negative, except as noted in HPI. ED EXAM GENERAL NO PERIP PULSE - Physical Exam Exam: See Below Exam Limited By: No Limitations General Appearance: Alert, WD/WN, No Apparent Distress Eye Exam: Bilateral Eye: EOMI, Normal Inspection Ears: Normal External Exam, Hearing Grossly Normal Nose: Normal Inspection Throat/Mouth: Normal Inspection, Normal Lips, Normal Teeth, Normal Gums, Normal Oropharynx, Normal Voice, No Airway Compromise, Other (hoarse voice) Head: Atraumatic, Normocephalic Neck: Normal Inspection, Supple, Non-Tender, Full Range of Motion Respiratory/Chest: No Respiratory Distress, Lungs Clear, Normal Breath Sounds, No Accessory Muscle Use, Chest Non-Tender Cardiovascular: Normal Peripheral Pulses, Regular Rate, Rhythm, No Edema, No Gallop, No JVD, No Murmur, No Rub GI/Abdominal: Normal Bowel Sounds, Soft, Non-Tender, No Organomegaly, No Distention, No Abnormal Bruit, No Mass (Female) Exam: Deferred Rectal (Female) Exam: Deferred Back Exam: Normal Inspection, Full Range of Motion, NT Extremities: Normal Inspection, Normal Range of Motion, Non-Tender, Normal Capillary Refill, No Pedal Edema Neurological: Alert, Oriented, CN II-XII Intact, Normal Cognition, Normal Gait, Normal Reflexes, No Motor/Sensory Deficits Psychiatric: Normal Affect, Normal Mood Skin Exam: Warm, Dry, Normal Color, Rash (erythematous irritation of the center of the anterior neck. Some excoriation.) Lymphatic: No Adenopathy Course - Vital Signs Last Recorded V/S: Last Vital Signs Temp 97.7 F 07/14/20 21:24 Pulse 83 07/14/20 21:24 Resp 18 07/14/20 21:24 BP 131/82 07/14/20 21:24 Pulse Ox 100 07/14/20 21:24 - Orders/Labs/Meds Orders: Active Orders 24 hr Category Date Time Status CULTURE STREP A CONFIRMATION [] Stat Lab 07/14/20 21:37 Results STREP SCRN A RAPID W CULT CONF [] Stat Lab 07/14/20 21:37 Results Labs: Laboratory Tests 07/14/20 07/14/20 Range/Units 21:40 21:40 WBC 9.4 (5.0-10.0) 10^3/uL RBC 5.61 H (4.2-5.4) 10^6/uL Hgb 12.7 (12.0-16.0) g/dL Hct 41.0 (37.0-47.0) % MCV 73.1 L (80-100) fL MCH 22.6 L (27.0-34.0) pg MCHC 31.0 L (33.0-35.0) g/dL Plt Count 310 (150-450) 10^3/uL Neut % (Auto) 61.1 (42.2-75.2) % Lymph % (Auto) 29.6 (20.5-50.1) % [place] % (Auto) 6.6 (2-8) % Eos % (Auto) 2.3 (1.0-3.0) % Baso % (Auto) 0.4 (0.0-1.0) % Sodium 139 (136-145) mmol/L Potassium 3.9 (3.5-5.1) mmol/L Chloride 101 (98-107) mmol/L Carbon Dioxide 24 (21-32) mmol/L Anion Gap 17.9 H (7-13) mEq/L BUN 10 (7-18) mg/dL Creatinine 1.10 H (0.55-1.02) mg/dL Est Cr Clr Drug Dosing 57.36 mL/min Estimated GFR (MDRD) 56 BUN/Creatinine Ratio 9.1 (No establ ref range) Glucose 158 H (74-99) mg/dL Calcium 8.6 (8.5-10.1) mg/dL Total Bilirubin 0.8 (0.2-1.0) mg/dL AST 42 H (15-37) U/L ALT 67 H (14-59) U/L Alkaline Phosphatase 63 (46-116) U/L Total Protein 7.2 (6.4-8.2) g/dL Albumin 3.8 (3.4-5.0) g/dL Globulin 3.4 Albumin/Globulin Ratio 1.1 Meds: Medications Discontinued Medications Generic Name Dose Route Start Last Admin Trade Name Freq PRN Reason Stop Dose Admin Famotidine 20 mg 07/14/20 21:38 07/14/20 21:45 Pepcid IVPUSH 07/14/20 21:39 20 mg ONETIME ONE Administration Sodium Chloride 1,000 mls @ 999 mls/hr 07/14/20 21:38 07/14/20 21:44 Normal Saline IV 07/14/20 22:38 999 mls/hr .BOLUS ONE Administration Methylprednisolone Sodium Succinate 125 mg 07/14/20 22:10 07/14/20 22:16 Solu-Medrol IVPUSH 07/14/20 22:11 125 mg ONETIME ONE Administration Departure - Departure Time of Disposition: 22:47 Disposition: Home, Self-Care 01 Condition: Fair Clinical Impression: Contact dermatitis Qualifiers: Contact dermatitis type: allergic Contact dermatitis trigger: unspecified trigger Qualified Code(s): L23.9 - Allergic contact dermatitis, unspecified cause - Discharge Information *PRESCRIPTION DRUG MONITORING PROGRAM REVIEWED*: No *COPY OF PRESCRIPTION DRUG MONITORING REPORT IN PATIENT ALEJANDRA: No Instructions: Contact Dermatitis, [id number] Forms: ED Department Discharge Additional Instructions: May use hydrocortisone over the counter cream as directed to the affected area of the neck May use benadryl as directed for swelling and allergies Follow up with your primary care facility Return to the ER with any worsening of problems. Sepsis Event Note (ED) - Evaluation Sepsis Screening Result: No Definite Risk - Focused Exam Vital Signs: Vital Signs Temp Pulse Resp BP Pulse Ox 07/14/20 21:24 97.7 F 83 18 131/82 100 - My Orders Last 24 Hours: My Active Orders 07/14/20 21:37 CULTURE STREP A CONFIRMATION [RM] Stat STREP SCRN A RAPID W CULT CONF [RM] Stat - Assessment/Plan Last 24 Hours: My Active Orders 07/14/20 21:37 CULTURE STREP A CONFIRMATION [RM] Stat STREP SCRN A RAPID W CULT CONF [RM] Stat
[2020-07-14 22:59] VITALS: BP 117/79; PULSE 75
== END 2020-07-14 22:55 | disposition home or self-care (01) ==
LOC: DL.ED 21:21
DX: L23.9 Allergic contact dermatitis, unspecified cause (principal); J45.909 Unspecified asthma, uncomplicated; E11.9 Type 2 diabetes mellitus without complications; E66.9 Obesity, unspecified; Z88.1 Allergy status to other antibiotic agents; Z91.018 Allergy to other foods; Z91.010 Allergy to peanuts; Z91.013 Allergy to seafood; Z79.899 Other long term (current) drug therapy; Z90.89 Acquired absence of other organs; Z68.37 Body mass index [BMI] 37.0-37.9, adult
CPT/HCPCS: 36415; 80053; 85025; 87081; 87430; 96361; 96374; 96375; 99283; J2930; J3490; J7030

== ENCOUNTER 2020-09-26 21:03 | Emergency (ER) | payer BC ==
[2020-09-26 21:30] VITALS: BP 132/86; PULSE 112
[2020-09-26] MEDS ORDERED: Ketorolac 30 MG/ML SDV IVPUSH ONE (21:51)
--- NOTE | 2020-09-26 21:53 | EDM.PDOC ---
ED HPI GENERAL MEDICAL PROBLEM - General Chief Complaint: Abdominal Pain Stated Complaint: PAIN UNDER RIGHT RIBS HEATBURN Time Seen by Provider: 09/26/20 21:51 Source of Information: Reports: Patient History Limitations: Reports: No Limitations - History of Present Illness INITIAL COMMENTS - FREE TEXT/NARRATIVE: onset RUQ pain earlier today, did eat caesar's salad with dressing tonight and felt worse. Right Upper Abdomen Pain Score (Numeric/FACES): 5 - Related Data Allergies Allergy/AdvReac Type Severity Reaction Status Date / Time peanut Allergy Anaphylactic Verified 09/26/20 21:33 Shock penicillin Allergy Anaphylactic Verified 09/26/20 21:33 Shock shellfish derived Allergy Anaphylactic Verified 09/26/20 21:33 Shock beer Allergy Anaphylactic Uncoded 09/26/20 21:33 Shock environmental Allergy Itching Uncoded 09/26/20 21:33 Home Meds: Home Meds Albuterol Sulfate [Ventolin Hfa] 2 puff INH Q4H PRN 10/29/15 [History] Multivitamin 1 tab PO DAILY 10/29/15 [History] metFORMIN [Glucophage] 1,000 mg PO BID 11/26/17 [History] Budesonide/Formoterol [Symbicort 160-4.5 MCG] 1 puff INH BID 10/23/18 [History] Montelukast [Singulair] 5 mg PO DAILY 10/23/18 [History] Rosuvastatin Calcium 5 mg PO .EVERY OTHER DAY. 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 Musculoskeletal History: Reports: Fracture Neurological History: Reports: None Psychiatric History: Reports: None Endocrine/Metabolic History: Reports: Diabetes, Type II, Obesity/BMI 30+ Hematologic History: Reports: None Immunologic History: Reports: None Oncologic (Cancer) History: Reports: None Dermatologic History: Reports: None - Infectious Disease History Infectious Disease History: Reports: None - Past Surgical History Head Surgeries/Procedures: Reports: None HEENT Surgical History: Reports: Adenoidectomy, Tonsillectomy Female Surgical History: Reports: Section Musculoskeletal Surgical History: Reports: Shoulder Surgery, Other (See Below) Other Musculoskeletal Surgeries/Procedures:: ankle surgery Social & Family History - Family History Family Medical History: No Pertinent Family History HEENT: Reports: None Cardiac: Reports: None Respiratory: Reports: None GI: Reports: None : Reports: None OBGYN: Reports: None Musculoskeletal: Reports: None Neurological: Reports: None Endocrine/Metabolic: Reports: None Hematologic: Reports: None - Caffeine Use Caffeine Use: Reports: Coffee, Tea - Living Situation & Occupation Living situation: Reports: , with Family Occupation: Employed ED ROS GENERAL - Review of Systems Review Of Systems: Comprehensive ROS is negative, except as noted in HPI. ED EXAM, GI/ABD - Physical Exam Exam: See Below Exam Limited By: No Limitations General Appearance: Alert, WD/WN, Mild Distress, Other (discomfort). No: Active Emesis Ears: Hearing Grossly Normal Throat/Mouth: Normal Voice, No Airway Compromise Head: Atraumatic Neck: Non-Tender, Full Range of Motion Respiratory/Chest: No Respiratory Distress Cardiovascular: Regular Rate, Rhythm GI/Abdominal Exam: Soft, Tender, Other (RUQ discomfort). No: Distended, Guarding, Rigid, Rebound (Female) Exam: Deferred Rectal (Female) Exam: Deferred Neurological: Alert, Oriented, Normal Cognition, Normal Gait, No Motor/Sensory Deficits Psychiatric: Flat Affect Skin Exam: Warm, Dry, Normal Color Lymphatic: No Adenopathy Course - Vital Signs Last Recorded V/S: Last Vital Signs Temp 36.6 C 09/26/20 21:19 Pulse 112 H 09/26/20 21:19 Resp 14 09/26/20 21:19 BP 132/86 09/26/20 21:19 Pulse Ox 100 09/26/20 21:19 - Orders/Labs/Meds Labs: Laboratory Tests 09/26/20 09/26/20 Range/Units 21:31 21:31 WBC 9.8 (5.0-10.0) 10^3/uL RBC 5.68 H (4.2-5.4) 10^6/uL Hgb 13.5 (12.0-16.0) g/dL Hct 41.9 (37.0-47.0) % MCV 73.8 L (80-100) fL MCH 23.8 L (27.0-34.0) pg MCHC 32.2 L (33.0-35.0) g/dL Plt Count 302 (150-450) 10^3/uL Neut % (Auto) 55.5 (42.2-75.2) % Lymph % (Auto) 33.3 (20.5-50.1) % [place] % (Auto) 8.9 H (2-8) % Eos % (Auto) 2.0 (1.0-3.0) % Baso % (Auto) 0.3 (0.0-1.0) % Sodium 132 L (136-145) mmol/L Potassium 4.0 (3.5-5.1) mmol/L Chloride 98 (98-107) mmol/L Carbon Dioxide 23 (21-32) mmol/L Anion Gap 15.0 H (7-13) mEq/L BUN 10 (7-18) mg/dL Creatinine 1.06 H (0.55-1.02) mg/dL Est Cr Clr Drug Dosing 59.53 mL/min Estimated GFR (MDRD) 58 BUN/Creatinine Ratio 9.4 (No establ ref range) Glucose 146 H (74-99) mg/dL Calcium 9.6 (8.5-10.1) mg/dL Total Bilirubin 0.6 (0.2-1.0) mg/dL AST 27 (15-37) U/L ALT 31 (14-59) U/L Alkaline Phosphatase 63 (46-116) U/L Total Protein 7.3 (6.4-8.2) g/dL Albumin 3.6 (3.4-5.0) g/dL Globulin 3.7 Albumin/Globulin Ratio 1.0 Amylase 28 (25-115) U/L Lipase 108 (73-393) U/L Meds: Medications Discontinued Medications Generic Name Dose Route Start Last Admin Trade Name Freq PRN Reason Stop Dose Admin Ketorolac Tromethamine 30 mg 09/26/20 21:51 09/26/20 22:12 Toradol IVPUSH 09/26/20 21:52 30 mg ONETIME ONE Administration - Re-Assessments/Exams Free Text/Narrative Re-Assessment/Exam: 09/26/20 22:19 results discussed with pt who is feeling s/p toradol Departure - Departure Time of Disposition: 22:20 Disposition: Home, Self-Care 01 Condition: Good Clinical Impression: Abdominal pain Qualifiers: Abdominal location: right upper quadrant Qualified Code(s): R10.11 - Right upper quadrant pain - Discharge Information Forms: ED Department Discharge Additional Instructions: 1) avoid fatty oily fried spicy foods 2) see clinic tomorrow for GALL BLADDER ULTRASOUND Sepsis Event Note (ED) - Evaluation Sepsis Screening Result: No Definite Risk - Focused Exam Vital Signs: Vital Signs Temp Pulse Resp BP Pulse Ox 09/26/20 21:19 36.6 C 112 H 14 132/86 100
== END 2020-09-26 22:31 | disposition home or self-care (01) ==
LOC: DL.ED 21:03
DX: R10.11 Right upper quadrant pain (principal); E78.00 Pure hypercholesterolemia, unspecified; J45.909 Unspecified asthma, uncomplicated; E11.9 Type 2 diabetes mellitus without complications; E28.2 Polycystic ovarian syndrome; E66.9 Obesity, unspecified; Z91.010 Allergy to peanuts; Z88.0 Allergy status to penicillin; Z91.013 Allergy to seafood; Z91.048 Other nonmedicinal substance allergy status; Z68.36 Body mass index [BMI] 36.0-36.9, adult; Z79.84 Long term (current) use of oral hypoglycemic drugs; Z79.899 Other long term (current) drug therapy
CPT/HCPCS: 36415; 80053; 82150; 83690; 85025; 96374; 99283; 99284-25; J1885

== ENCOUNTER 2020-11-04 20:02 | Emergency (ER) | payer BC ==
[2020-11-04] MEDS ORDERED: Albuterol/Ipratropium 3.0-0.5 MG/3 ML Neb Soln NEB ONE (20:19)
[2020-11-04] MEDS ORDERED: methylPREDNISolone Sodium Succinate 125 MG/2 ML SDV IVPUSH ONE (20:20)
--- NOTE | 2020-11-04 20:28 | EDM.PDOC ---
<Austen Elaine C - Last Filed: 11/04/20 20:23> ED HPI GENERAL MEDICAL PROBLEM - General Chief Complaint: Respiratory Problem Stated Complaint: ASTHMA ATTACK Time Seen by Provider: 11/04/20 20:23 Source of Information: Reports: Patient - History of Present Illness INITIAL COMMENTS - FREE TEXT/NARRATIVE: 39 y/o F c/o asthma attack after taking a bath about an hour ago. Pt believes her new bath balm caused her asthma to exacerbate. Pt tried her proair three times without sucess. Hx of asthma uses Symbicort and proair. Pt feels tightness in her chest similar to her asthma sensation. Denies phan, abd vision prob, dizziness, . Onset: Sudden Duration: Hour(s): Location: Reports: Chest Quality: Reports: Other (tightness) Improves with: Reports: None Worsens with: Reports: None Treatments POND TENDER: Reports: Breathing Treatments - Related Data Allergies Allergy/AdvReac Type Severity Reaction Status Date / Time cantaloupe Allergy Anaphylactic Verified 11/04/20 20:28 Shock peanut Allergy Anaphylactic Verified 11/04/20 20:28 Shock penicillin Allergy Anaphylactic Verified 11/04/20 20:28 Shock shellfish derived Allergy Anaphylactic Verified 11/04/20 20:28 Shock beer Allergy Anaphylactic Uncoded 11/04/20 20:28 Shock environmental Allergy Itching Uncoded 11/04/20 20:28 Home Meds: Home Meds Albuterol Sulfate [Ventolin Hfa] 2 puff INH Q4H PRN 10/29/15 [History] Multivitamin 1 tab PO DAILY 10/29/15 [History] metFORMIN [Glucophage] 1,000 mg PO BID 11/26/17 [History] Budesonide/Formoterol [Symbicort 160-4.5 MCG] 1 puff INH BID 10/23/18 [History] Montelukast [Singulair] 5 mg PO DAILY 10/23/18 [History] Rosuvastatin Calcium 5 mg PO .EVERY OTHER DAY. 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: Polycystic Ovaries Musculoskeletal History: Reports: Fracture Neurological History: Reports: None Psychiatric History: Reports: Anxiety Endocrine/Metabolic History: Reports: Diabetes, Type II, Obesity/BMI 30+ Hematologic History: Reports: None Immunologic History: Reports: None Oncologic (Cancer) History: Reports: None Dermatologic History: Reports: None - Infectious Disease History Infectious Disease History: Reports: None - Past Surgical History Head Surgeries/Procedures: Reports: None HEENT Surgical History: Reports: Adenoidectomy, Tonsillectomy GI Surgical History: Reports: None Female Surgical History: Reports: Section Other Female Surgeries/Procedures: c/s x 2 Musculoskeletal Surgical History: Reports: Shoulder Surgery, Other (See Below) Other Musculoskeletal Surgeries/Procedures:: ankle surgery Social & Family History - Family History Family Medical History: No Pertinent Family History HEENT: Reports: None Cardiac: Reports: None Respiratory: Reports: None GI: Reports: None : Reports: None OBGYN: Reports: None Musculoskeletal: Reports: None Neurological: Reports: None Endocrine/Metabolic: Reports: None Hematologic: Reports: None - Caffeine Use Caffeine Use: Reports: Coffee, Tea - Living Situation & Occupation Living situation: Reports: , with Family Occupation: Employed ED ROS GENERAL - Review of Systems Review Of Systems: Comprehensive ROS is negative, except as noted in HPI. ED EXAM, GENERAL - Physical Exam Exam: See Below Exam Limited By: No Limitations General Appearance: Alert, WD/WN, No Apparent Distress Eye Exam: Bilateral Eye: PERRL Nose: Normal Inspection, Normal Mucosa, No Blood Throat/Mouth: Normal Inspection, Normal Lips, Normal Teeth, Normal Gums, Normal Oropharynx, Normal Voice, No Airway Compromise Head: Atraumatic Neck: Normal Inspection, Supple, Non-Tender, Full Range of Motion Respiratory/Chest: No Accessory Muscle Use, Wheezing Cardiovascular: Normal Peripheral Pulses, Regular Rate, Rhythm, No Edema, No Gallop, No JVD, No Murmur, No Rub GI/Abdominal: Soft, Non-Tender (Female) Exam: Deferred Rectal (Female) Exam: Deferred Extremities: Normal Inspection, No Pedal Edema Neurological: Alert, Oriented, CN II-XII Intact, Normal Cognition, Normal Gait, Normal Reflexes, No Motor/Sensory Deficits Psychiatric: Normal Affect, Normal Mood Skin Exam: Warm, Dry, Intact, Normal Color, No Rash Departure - Departure Disposition: Home, Self-Care 01 Clinical Impression: Asthma attack Qualifiers: Asthma severity: moderate Asthma persistence: persistent Qualified Code(s): J45.41 - Moderate persistent asthma with (acute) exacerbation - Discharge Information Instructions: Asthma, Adult, [id number], Asthma Attack Prevention, Adult Forms: ED Department Discharge Additional Instructions: Return to the ER if any worsening of symptoms Follow-up with your primary care provider <Fernanda Wei - Last Filed: 11/04/20 21:39> Course - Vital Signs Last Recorded V/S: Last Vital Signs Temp 97.4 F 11/04/20 20:10 Pulse 103 H 11/04/20 21:24 Resp 18 11/04/20 21:24 BP 132/79 11/04/20 21:24 Pulse Ox 97 11/04/20 21:24 - Orders/Labs/Meds Meds: Medications Discontinued Medications Generic Name Dose Route Start Last Admin Trade Name Brooke PRN Reason Stop Dose Admin Albuterol/Ipratropium 3 ml 11/04/20 20:19 11/04/20 20:27 Duoneb 3.0-0.5 Mg/3 Ml NEB 11/04/20 20:20 3 ml ONETIME ONE Administration Magnesium Sulfate 4 gm in 100 mls @ 300 mls/hr 11/04/20 20:30 Magnesium Sulfate In Water 2 Gm/50 Ml IV ONETIME KELSIE Magnesium Sulfate 2 gm in 50 mls @ 50 mls/hr 11/04/20 20:45 11/04/20 20:41 Magnesium Sulfate In Water 2 Gm/50 Ml IV 50 mls/hr ONETIME KELSIE Administration Methylprednisolone Sodium Succinate 125 mg 11/04/20 20:20 11/04/20 20:33 Solu-Medrol IVPUSH 11/04/20 20:21 125 mg ONETIME ONE Administration - Re-Assessments/Exams Free Text/Narrative Re-Assessment/Exam: 11/04/20 21:39 I personally performed or re-performed the physical examination and medical decision making. I have verified all student documentation or findings, including history, physical exam and/or medical decision making. Departure - Departure Time of Disposition: 21:18 Condition: Good - Discharge Information *PRESCRIPTION DRUG MONITORING PROGRAM REVIEWED*: No *COPY OF PRESCRIPTION DRUG MONITORING REPORT IN PATIENT ALEJANDRA: No Sepsis Event Note (ED) - Focused Exam Vital Signs: Vital Signs Temp Pulse Resp BP Pulse Ox 11/04/20 21:24 103 H 18 132/79 97 11/04/20 20:49 104 H 20 122/74 96 11/04/20 20:10 97.4 F 146 H 20 131/81 96
[2020-11-04] MEDS ORDERED: Magnesium Sulfate/Water 4 GM/100 ML BAG IV SCH (20:30)
[2020-11-04] MEDS ORDERED: Magnesium Sulfate/Water 2 GM/50 ML BAG IV SCH (20:45)
[2020-11-04 21:24] VITALS: BP 132/79; PULSE 103
== END 2020-11-04 21:24 | disposition home or self-care (01) ==
LOC: DL.ED 20:02
DX: J45.41 Moderate persistent asthma with (acute) exacerbation (principal); E78.00 Pure hypercholesterolemia, unspecified; J45.909 Unspecified asthma, uncomplicated; E11.9 Type 2 diabetes mellitus without complications; E66.9 Obesity, unspecified; Z68.37 Body mass index [BMI] 37.0-37.9, adult; Z91.018 Allergy to other foods; Z88.0 Allergy status to penicillin; Z91.013 Allergy to seafood; Z91.048 Other nonmedicinal substance allergy status; Z79.84 Long term (current) use of oral hypoglycemic drugs; Z79.899 Other long term (current) drug therapy; Z91.010 Allergy to peanuts
CPT/HCPCS: 94640; 96365; 96375; 99284; J2930; J3475; 99283; J7620-GY

== ENCOUNTER 2021-01-05 01:54 | Emergency (ER) | payer BC ==
[2021-01-05 02:09] VITALS: BP 129/76; PULSE 122
[2021-01-05] MEDS ORDERED: Acetaminophen 500 MG Tab PO ONE (02:40)
--- NOTE | 2021-01-05 02:47 | EDM.PDOC ---
ED HPI GENERAL MEDICAL PROBLEM - General Chief Complaint: Lower Extremity Injury/Pain Stated Complaint: POSSIBLE BROKEN ANKLE (LEFT) Time Seen by Provider: 01/05/21 02:30 Source of Information: Reports: Patient, RN, RN Notes Reviewed History Limitations: Reports: No Limitations - History of Present Illness INITIAL COMMENTS - FREE TEXT/NARRATIVE: Patient presents to the ED via personal vehicle with for complaints of left lateral ankle pain. The patient reports falling down her stairs approximately one hour ago. She states during the fall her left ankle internally rotated and she heard and felt a "pop" sensation. She denies loss of sensory function to the distal extremity, but notes pain with dorsiflexion and plantar flexion. She attests to a history of ankle fixation following fracture with multiple pins. She denies tobacco, alcohol, or recreational drug use. Left Ankle Pain Score (Numeric/FACES): 8 - Related Data Allergies Allergy/AdvReac Type Severity Reaction Status Date / Time cantaloupe Allergy Anaphylactic Verified 11/04/20 20:28 Shock peanut Allergy Anaphylactic Verified 11/04/20 20:28 Shock penicillin Allergy Anaphylactic Verified 11/04/20 20:28 Shock shellfish derived Allergy Anaphylactic Verified 11/04/20 20:28 Shock beer Allergy Anaphylactic Uncoded 11/04/20 20:28 Shock environmental Allergy Itching Uncoded 11/04/20 20:28 Home Meds: Home Meds Albuterol Sulfate [Ventolin Hfa] 2 puff INH Q4H PRN 10/29/15 [History] Multivitamin 1 tab PO DAILY 10/29/15 [History] metFORMIN [Glucophage] 1,000 mg PO BID 11/26/17 [History] Budesonide/Formoterol [Symbicort 160-4.5 MCG] 1 puff INH BID 10/23/18 [History] Montelukast [Singulair] 5 mg PO DAILY 10/23/18 [History] Rosuvastatin Calcium 5 mg PO .EVERY OTHER DAY. 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 Musculoskeletal History: Reports: Fracture Neurological History: Reports: None Psychiatric History: Reports: Anxiety Endocrine/Metabolic History: Reports: Diabetes, Type II, Obesity/BMI 30+ Hematologic History: Reports: None Immunologic History: Reports: None Oncologic (Cancer) History: Reports: None Dermatologic History: Reports: None - Infectious Disease History Infectious Disease History: Reports: None - Past Surgical History Head Surgeries/Procedures: Reports: None HEENT Surgical History: Reports: Adenoidectomy, Tonsillectomy GI Surgical History: Reports: None Female Surgical History: Reports: Section Other Female Surgeries/Procedures: c/s x 2 Musculoskeletal Surgical History: Reports: Shoulder Surgery, Other (See Below) Other Musculoskeletal Surgeries/Procedures:: ankle surgery Social & Family History - Family History Family Medical History: No Pertinent Family History HEENT: Reports: None Cardiac: Reports: None Respiratory: Reports: None GI: Reports: None : Reports: None OBGYN: Reports: None Musculoskeletal: Reports: None Neurological: Reports: None Endocrine/Metabolic: Reports: None Hematologic: Reports: None - Tobacco Use Tobacco Use Status *Q: Never Tobacco User - Caffeine Use Caffeine Use: Reports: None - Recreational Drug Use Recreational Drug Use: No - Living Situation & Occupation Living situation: Reports: , with Family Occupation: Employed Review of Systems - Review of Systems Review Of Systems: Comprehensive ROS is negative, except as noted in HPI. ED EXAM, GENERAL - Physical Exam Exam: See Below Exam Limited By: No Limitations General Appearance: Alert, No Apparent Distress Eye Exam: Bilateral Eye: EOMI, Normal Inspection, PERRL (3mm) Throat/Mouth: Normal Inspection, Normal Voice, No Airway Compromise Head: Atraumatic, Normocephalic Respiratory/Chest: No Respiratory Distress, Lungs Clear, Normal Breath Sounds, No Accessory Muscle Use, Chest Non-Tender Cardiovascular: Normal Peripheral Pulses, Regular Rate, Rhythm, No Edema, No Gallop, No JVD, No Murmur, No Rub Peripheral Pulses: 1+: Posterior Tibial (L), Posterior Tibial (R), 2+: Radial (L), Radial (R), Dorsalis Pedis (L), Dorsalis Pedis (R) GI/Abdominal: Normal Bowel Sounds, Soft, Non-Tender, No Distention, No Mass, Pelvis Stable Extremities: Normal Capillary Refill, Leg Pain (To left lateral, posterior ankle), Limited Range of Motion (To left lateral ankle). No: Pedal Edema, Joint Swelling, Jimmie's Sign, Increased Warmth, Mottled, Pallor, Redness Neurological: Alert, Oriented, CN II-XII Intact, Normal Cognition, No Motor/Sensory Deficits, Abnormal Gait Psychiatric: Normal Affect, Normal Mood Skin Exam: Warm, Dry, Intact, Normal Color, No Rash. No: Ecchymosis, Erythema, Jaundice, Mottled, Pallor, Petechiae Course - Vital Signs Last Recorded V/S: Last Vital Signs Temp 98.6 F 01/05/21 02:05 Pulse 122 H 01/05/21 02:05 Resp 20 01/05/21 02:05 BP 129/76 01/05/21 02:05 Pulse Ox 100 01/05/21 02:05 - Orders/Labs/Meds Meds: Medications Discontinued Medications Generic Name Dose Route Start Last Admin Trade Name Brooke PRN Reason Stop Dose Admin Acetaminophen 1,000 mg 01/05/21 02:40 01/05/21 03:19 Acetaminophen 500 Mg Tab PO 01/05/21 02:41 1,000 mg ONETIME ONE Administration - Radiology Interpretation Free Text/Narrative:: [facility] Final Radiology Report Call: [phone] assistance Online chat: [email or web address] Name: UBALDO GÓMEZ Age: 40Years F Date: 01/05/2021 SSN: -- : [id number] Study: CR ANKLE MIN 3V LT Requesting Physician: Patricia Lemus Images: 3 Addl Studies: Provided Clinical History: Fell downstairs about one hour ago Contrast: Contrast Medium: Contrast Amount: Contrast Method: CONFIDENTIALITY STATEMENT This report is intended only for use by the referring physician, and only in acc ordance with law. If you received this in error, call [phone]. Page 1 of 1 PROCEDURE INFORMATION: Exam: XR Left Ankle Exam date and time: 01/05/2021 2:13 AM Age: 40 years old Clinical indication: Other: Pain posterior; Additional info: Fell downstairs about one hour ago TECHNIQUE: Imaging protocol: XR Left ankle. Views: 3 or more views. COMPARISON: CR Ankle Min 3V Lt 08/05/2019 2:01 PM FINDINGS: Bones/joints: Healed distal fibular fracture. No acute fracture or dislocation. Mild tibiotalar joint space narrowing and hypertrophic change. Soft tissues: Normal. IMPRESSION: 1. No acute fracture or dislocation. 2. Mild tibiotalar osteoarthritis. Thank you for allowing us to participate in the care of your patient. Dictated and Authenticated by: Ric Rucker DO 01/05/2021 3:07 AM Central Time ([place] & [place]) - Re-Assessments/Exams Free Text/Narrative Re-Assessment/Exam: 01/05/21 Xray of left lateral ankle unremarkable for acute processes; no indication for fracture or dislocation. Tibiotalar osteoarthritis appreciated. Findings of examination and imaging reviewed with patient. Supportive cares reviewed. Patient verbalized understanding and agreement with the plan of care. Departure - Departure Time of Disposition: 03:10 Disposition: Home, Self-Care 01 Condition: Good Clinical Impression: Left ankle strain Qualifiers: Encounter type: initial encounter Qualified Code(s): S96.912A - Strain of unspecified muscle and tendon at ankle and foot level, left foot, initial encounter - Discharge Information *PRESCRIPTION DRUG MONITORING PROGRAM REVIEWED*: Not Applicable *COPY OF PRESCRIPTION DRUG MONITORING REPORT IN PATIENT ALEJANDRA: Not Applicable Instructions: Muscle Strain, [id number] Forms: ED Department Discharge Additional Instructions: 1.) You may take ibuprofen (Advil/Motrin) 400mg every six hours, as pain and swelling persists. You may also take acetaminophen (Tylenol) 650mg every six hours, as pain persists. You may stagger these medications so you are receiving a dose every three hours. 2.) You may apply ice to the affected area, as swelling persists; 20 minutes on every hour. 3.) Keep joint elevated, while at rest. 4.) Continue to move the ankle and apply weight, as tolerated. Sepsis Event Note (ED) - Evaluation Sepsis Screening Result: No Definite Risk
--- NOTE | 2021-01-05 03:07 | CR ---
PROCEDURE INFORMATION: Exam: XR Left Ankle Exam date and time: 01/05/2021 2:13 AM Age: 40 years old Clinical indication: Other: Pain posterior; Additional info: Fell downstairs about one hour ago TECHNIQUE: Imaging protocol: XR Left ankle. Views: 3 or more views. COMPARISON: CR Ankle Min 3V Lt 08/05/2019 2:01 PM FINDINGS: Bones/joints: Healed distal fibular fracture. No acute fracture or dislocation. Mild tibiotalar joint space narrowing and hypertrophic change. Soft tissues: Normal. IMPRESSION: 1. No acute fracture or dislocation. 2. Mild tibiotalar osteoarthritis.
== END 2021-01-05 03:21 | disposition home or self-care (01) ==
LOC: DL.ED 01:54
DX: S96.912A Strain of unspecified muscle and tendon at ankle and foot level, left foot, initial encounter (principal); E78.00 Pure hypercholesterolemia, unspecified; J45.909 Unspecified asthma, uncomplicated; E11.9 Type 2 diabetes mellitus without complications; E66.9 Obesity, unspecified; Z68.35 Body mass index [BMI] 35.0-35.9, adult; Z88.0 Allergy status to penicillin; Z91.010 Allergy to peanuts; Z88.8 Allergy status to other drugs, medicaments and biological substances; Z91.013 Allergy to seafood; Z79.84 Long term (current) use of oral hypoglycemic drugs; Z79.899 Other long term (current) drug therapy; W10.9XXA Fall (on) (from) unspecified stairs and steps, initial encounter
CPT/HCPCS: 73610; 99282; 99283; A9270

== ENCOUNTER 2021-08-30 21:25 | Emergency (ER) | payer BC ==
[2021-08-30] MEDS ORDERED: diphenhydrAMINE 50 MG/ML SDV IVPUSH ONE (21:36)
[2021-08-30] MEDS ORDERED: methylPREDNISolone Sodium Succinate 125 MG/2 ML SDV IVPUSH ONE (21:36)
[2021-08-30] MEDS ORDERED: Sodium Chloride 0.9% 10 ML Syringe FLUSH PRN (21:36)
[2021-08-30] MEDS ORDERED: EPINEPHrine 1 MG/ML SDV ONE (21:41)
--- NOTE | 2021-08-30 22:12 | EDM.PDOC ---
ED HPI GENERAL MEDICAL PROBLEM - General Chief Complaint: Allergic Reaction Stated Complaint: ALLERGIC REACTION TO PEANUTBUTTER Time Seen by Provider: 08/30/21 21:50 Source of Information: Reports: Patient History Limitations: Reports: No Limitations - History of Present Illness INITIAL COMMENTS - FREE TEXT/NARRATIVE: 40 y/o F c/o tingling on tongue, itchy throat, after ingesting a peanut butter cookie. Hx of severe allergies to peanuts. Pt did not have her epi pen and so she took 50mg Benadryl PO with no change. Denies itching skin, rash, sob, cough, cp, db, abd pn, ext pain - Related Data Allergies Allergy/AdvReac Type Severity Reaction Status Date / Time cantaloupe Allergy Anaphylactic Verified 08/30/21 21:35 Shock peanut Allergy Anaphylactic Verified 08/30/21 21:35 Shock penicillin Allergy Anaphylactic Verified 08/30/21 21:35 Shock shellfish derived Allergy Anaphylactic Verified 08/30/21 21:35 Shock beer Allergy Anaphylactic Uncoded 11/04/20 20:28 Shock environmental Allergy Itching Uncoded 11/04/20 20:28 Home Meds: Home Meds Albuterol Sulfate [Ventolin Hfa] 2 puff INH Q4H PRN 10/29/15 [History] Multivitamin 1 tab PO DAILY 10/29/15 [History] metFORMIN [Glucophage] 1,000 mg PO BID 11/26/17 [History] Budesonide/Formoterol [Symbicort 160-4.5 MCG] 1 puff INH BID 10/23/18 [History] Montelukast [Singulair] 5 mg PO DAILY 10/23/18 [History] Rosuvastatin Calcium 5 mg PO .EVERY OTHER DAY. 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 Musculoskeletal History: Reports: Fracture Neurological History: Reports: None Psychiatric History: Reports: Anxiety Endocrine/Metabolic History: Reports: Diabetes, Type II, Obesity/BMI 30+ Hematologic History: Reports: None Immunologic History: Reports: None Oncologic (Cancer) History: Reports: None Dermatologic History: Reports: None - Infectious Disease History Infectious Disease History: Reports: None - Past Surgical History Head Surgeries/Procedures: Reports: None HEENT Surgical History: Reports: Adenoidectomy, Tonsillectomy GI Surgical History: Reports: None Female Surgical History: Reports: Section Other Female Surgeries/Procedures: c/s x 2 Musculoskeletal Surgical History: Reports: Shoulder Surgery, Other (See Below) Other Musculoskeletal Surgeries/Procedures:: ankle surgery Social & Family History - Family History Family Medical History: No Pertinent Family History HEENT: Reports: None Cardiac: Reports: None Respiratory: Reports: None GI: Reports: None : Reports: None OBGYN: Reports: None Musculoskeletal: Reports: None Neurological: Reports: None Endocrine/Metabolic: Reports: None Hematologic: Reports: None - Tobacco Use Tobacco Use Status *Q: Never Tobacco User - Caffeine Use Caffeine Use: Reports: None - Recreational Drug Use Recreational Drug Use: No - Living Situation & Occupation Living situation: Reports: , with Family Occupation: Employed ED ROS ALLERGIC REACTION - Review of Systems Review Of Systems: Comprehensive ROS is negative, except as noted in HPI. ED EXAM GENERAL NO PERIP PULSE - Physical Exam Exam: See Below Exam Limited By: No Limitations General Appearance: Alert Ears: Normal External Exam, Normal Canal, Hearing Grossly Normal, Normal TMs Nose: Normal Inspection, Normal Mucosa, No Blood Throat/Mouth: Normal Inspection, Normal Lips, Normal Teeth, Normal Gums, Normal Oropharynx, Normal Voice, No Airway Compromise Head: Atraumatic, Normocephalic Neck: Normal Inspection, Supple, Non-Tender, Full Range of Motion Respiratory/Chest: No Respiratory Distress, Lungs Clear, Normal Breath Sounds, No Accessory Muscle Use, Chest Non-Tender Cardiovascular: Normal Peripheral Pulses, Regular Rate, Rhythm, No Edema, No Gallop, No JVD, No Murmur, No Rub GI/Abdominal: Soft, Non-Tender Back Exam: Normal Inspection, Full Range of Motion, NT Extremities: Normal Inspection, Normal Range of Motion, Non-Tender, Normal Capillary Refill, No Pedal Edema Skin Exam: Warm, Dry, Intact Course - Vital Signs Last Recorded V/S: Last Vital Signs Temp 98.0 F 08/30/21 22:30 Pulse 88 08/30/21 22:30 Resp 18 08/30/21 22:30 BP 114/74 08/30/21 22:30 Pulse Ox 95 08/30/21 22:30 - Orders/Labs/Meds Orders: Active Orders 24 hr Category Date Time Status Peripheral IV Insertion Adult [OM.PC] Routine Oth 08/30/21 21:36 Ordered Meds: Medications Discontinued Medications Generic Name Dose Route Start Last Admin Trade Name Freq PRN Reason Stop Dose Admin Diphenhydramine HCl 50 mg 08/30/21 21:36 08/30/21 21:44 Diphenhydramine 50 Mg/Ml Sdv IVPUSH 08/30/21 21:37 50 mg ONETIME ONE Administration Epinephrine HCl Confirm 08/30/21 21:41 08/30/21 21:45 Epinephrine 1 Mg/Ml Sdv Administered 08/30/21 21:42 0.3 mg Dose Administration 1 mg .ROUTE .STK-MED ONE Methylprednisolone Sodium Succinate 125 mg 08/30/21 21:36 08/30/21 21:46 Methylprednisolone Sodium Succinate 125 Mg/2 Ml Sdv IVPUSH 08/30/21 21:37 125 mg ONETIME ONE Administration Sodium Chloride 10 ml 08/30/21 21:36 08/30/21 21:47 Sodium Chloride 0.9% 10 Ml Syringe FLUSH 10 ml ASDIRECTED PRN Administration Keep Vein Open - Re-Assessments/Exams Free Text/Narrative Re-Assessment/Exam: 08/30/21 22:11 The pt feels much better after medical housekeeper and feels safe to go home. Departure - Departure Time of Disposition: 22:11 Disposition: Home, Self-Care 01 Condition: Good Clinical Impression: Allergic reaction Qualifiers: Encounter type: initial encounter Qualified Code(s): T78.40XA - Allergy, unspecified, initial encounter - Discharge Information *PRESCRIPTION DRUG MONITORING PROGRAM REVIEWED*: Not Applicable *COPY OF PRESCRIPTION DRUG MONITORING REPORT IN PATIENT ALEJANDRA: Not Applicable Instructions: Allergies, Adult, [id number] Referrals: Orestes Cowan PA-C [Primary Care Provider] - Forms: ED Department Discharge Sepsis Event Note (ED) - Evaluation Sepsis Screening Result: No Definite Risk - Focused Exam Vital Signs: Vital Signs Temp Pulse Resp BP Pulse Ox 08/30/21 22:30 98.0 F 88 18 114/74 95 08/30/21 21:35 98.1 F 108 H 18 125/84 98 - My Orders Last 24 Hours: My Active Orders 08/30/21 21:36 Peripheral IV Insertion Adult [OM.PC] Routine - Assessment/Plan Last 24 Hours: My Active Orders 08/30/21 21:36 Peripheral IV Insertion Adult [OM.PC] Routine
[2021-08-30 22:59] VITALS: BP 114/74; PULSE 88
== END 2021-08-30 22:37 | disposition home or self-care (01) ==
LOC: DL.ED 21:25
DX: T78.1XXA Other adverse food reactions, not elsewhere classified, initial encounter (principal); E78.00 Pure hypercholesterolemia, unspecified; E11.9 Type 2 diabetes mellitus without complications; E66.9 Obesity, unspecified; Z68.36 Body mass index [BMI] 36.0-36.9, adult; Z91.010 Allergy to peanuts; Z91.018 Allergy to other foods; Z88.0 Allergy status to penicillin; Z91.013 Allergy to seafood; Z79.899 Other long term (current) drug therapy; Z79.84 Long term (current) use of oral hypoglycemic drugs
CPT/HCPCS: 96374; 96375; 99283-25; J0171; J1200; J2930

== ENCOUNTER 2022-01-12 18:32 | Emergency (ER) | payer BC ==
[2022-01-12] MEDS ORDERED: methylPREDNISolone Sodium Succinate 125 MG/2 ML SDV IVPUSH ONE (19:13)
[2022-01-12] MEDS ORDERED: Famotidine 20 MG/2 ML SDV IVPUSH ONE (19:31)
[2022-01-12] MEDS ORDERED: Sodium Chloride 0.9% 1,000 ML IV ONE (19:31)
[2022-01-12 19:57] VITALS: BP 113/72; PULSE 96
== END 2022-01-12 20:29 | disposition home or self-care (01) ==
LOC: DL.ED 18:32
DX: T78.1XXA Other adverse food reactions, not elsewhere classified, initial encounter (principal); E78.00 Pure hypercholesterolemia, unspecified; E11.9 Type 2 diabetes mellitus without complications; E66.9 Obesity, unspecified; Z68.35 Body mass index [BMI] 35.0-35.9, adult; Z86.16 Personal history of COVID-19; Z91.010 Allergy to peanuts; Z88.0 Allergy status to penicillin; Z88.8 Allergy status to other drugs, medicaments and biological substances; Z91.013 Allergy to seafood; Z91.018 Allergy to other foods; Z91.09 Other allergy status, other than to drugs and biological substances; Z79.84 Long term (current) use of oral hypoglycemic drugs; Z79.899 Other long term (current) drug therapy
CPT/HCPCS: 96374; 96375; 99283; 99284; J2930; J3490; J7030

== ENCOUNTER 2022-01-13 17:46 | Emergency (ER) | payer BC ==
[2022-01-13 18:06] VITALS: BP 147/96; PULSE 89
== END 2022-01-13 18:35 | disposition home or self-care (01) ==
LOC: DL.ED 17:46
DX: T78.1XXA Other adverse food reactions, not elsewhere classified, initial encounter (principal); E78.00 Pure hypercholesterolemia, unspecified; E11.9 Type 2 diabetes mellitus without complications; E66.9 Obesity, unspecified; Z68.36 Body mass index [BMI] 36.0-36.9, adult; Z88.8 Allergy status to other drugs, medicaments and biological substances; Z91.010 Allergy to peanuts; Z88.0 Allergy status to penicillin; Z91.018 Allergy to other foods; Z79.899 Other long term (current) drug therapy; Z79.84 Long term (current) use of oral hypoglycemic drugs; Z86.16 Personal history of COVID-19
CPT/HCPCS: 99283

== ENCOUNTER 2022-09-26 09:45 | Emergency (ER) | payer BC ==
[2022-09-26 10:02] VITALS: BP 124/82; PULSE 94
== END 2022-09-26 11:12 | disposition home or self-care (01) ==
LOC: DL.ED 09:45
DX: S50.11XA Contusion of right forearm, initial encounter (principal); E78.00 Pure hypercholesterolemia, unspecified; J45.909 Unspecified asthma, uncomplicated; E11.9 Type 2 diabetes mellitus without complications; K21.9 Gastro-esophageal reflux disease without esophagitis; E66.9 Obesity, unspecified; Z68.36 Body mass index [BMI] 36.0-36.9, adult; Z72.0 Tobacco use; Z88.0 Allergy status to penicillin; Z91.013 Allergy to seafood; Z91.048 Other nonmedicinal substance allergy status; Z88.8 Allergy status to other drugs, medicaments and biological substances; Z91.010 Allergy to peanuts; Z91.018 Allergy to other foods; Z79.899 Other long term (current) drug therapy; Z79.84 Long term (current) use of oral hypoglycemic drugs; W22.8XXA Striking against or struck by other objects, initial encounter
CPT/HCPCS: 73090-RT; 99283

== ENCOUNTER 2023-02-26 23:07 | Emergency (ER) | payer BC ==
[2023-02-27] MEDS ORDERED: Clindamycin HCl 150 MG Cap PO ONE (00:17)
[2023-02-27 00:27] VITALS: BP 135/94; PULSE 96
== END 2023-02-27 00:44 | disposition home or self-care (01) ==
LOC: DL.ED 23:07
DX: K04.7 Periapical abscess without sinus (principal); E78.00 Pure hypercholesterolemia, unspecified; J45.909 Unspecified asthma, uncomplicated; K21.9 Gastro-esophageal reflux disease without esophagitis; E11.9 Type 2 diabetes mellitus without complications; E66.9 Obesity, unspecified; Z68.37 Body mass index [BMI] 37.0-37.9, adult; Z91.048 Other nonmedicinal substance allergy status; Z91.010 Allergy to peanuts; Z88.0 Allergy status to penicillin; Z91.013 Allergy to seafood; Z79.84 Long term (current) use of oral hypoglycemic drugs; Z79.899 Other long term (current) drug therapy
CPT/HCPCS: 99282; A9270

== ENCOUNTER 2023-04-23 20:58 | Emergency (ER) | payer BC ==
[2023-04-23] MEDS ORDERED: Sodium Chloride 0.9% 10 ML Syringe FLUSH PRN (21:34)
[2023-04-23 21:53] LABS: BASOPHILS PERCENT AUTO 0.4 % (0.0-1.0); EOSINOPHILS PERCENT AUTO 1.2 % (1.0-3.0); HEMATOCRIT 43.6 % (37.0-47.0); LYMPHOCYTES PERCENT AUTO 23.4 % (20.5-50.1); MEAN CORPUSCULAR HEMOGLOBIN 28.6 pg (27.0-34.0); MEAN CORPUSCULAR HGB CONC 34.4 g/dL (33.0-35.0); MEAN CORPUSCULAR VOLUME 83.2 fL (80-100); MONOCYTES PERCENT AUTO 9.2 % (2-8); NEUTROPHILS PERCENT AUTO 65.8 % (42.2-75.2); PLATELET COUNT,PLT 220 10^3/uL (150-450); RED BLOOD CELL COUNT 5.24 10^6/uL (4.2-5.4); WHITE BLOOD CELL COUNT,WBC 7.4 10^3/uL (5.0-10.0)
[2023-04-23 22:19] LABS: LACTIC ACID 1.5 mmol/L (0.4-2.0)
[2023-04-23 22:26] LABS: A/G RATIO 1.2; ALBUMIN 4.1 g/dL (3.4-5.0); BUN/CREATININE RATIO 8.3 (No establ ref range); C-REACTIVE PROTEIN 7.8 mg/dL (0.0-0.9); CALCIUM 9.2 mg/dL (8.5-10.1); CREATININE 0.84 mg/dL (0.55-1.02); EST CRCL DRUG DOSING (CG) 72.91 mL/min; PROTEIN TOTAL,TP 7.6 g/dL (6.4-8.2)
[2023-04-23] MEDS ORDERED: Sulfamethoxazole/Trimethoprim 800-160 MG Tab PO ONE (22:30)
[2023-04-23 22:43] VITALS: BP 112/78; PULSE 99
== END 2023-04-23 22:38 | disposition home or self-care (01) ==
LOC: DL.ED 20:58
DX: L03.115 Cellulitis of right lower limb (principal); E78.00 Pure hypercholesterolemia, unspecified; J45.909 Unspecified asthma, uncomplicated; K21.9 Gastro-esophageal reflux disease without esophagitis; E11.9 Type 2 diabetes mellitus without complications; Z86.16 Personal history of COVID-19; Z88.0 Allergy status to penicillin; Z91.013 Allergy to seafood; Z91.048 Other nonmedicinal substance allergy status; Z91.010 Allergy to peanuts; Z91.018 Allergy to other foods
CPT/HCPCS: 36415; 80053; 83605; 85025; 86140; 87040; 99283; A9270; J3490

== ENCOUNTER 2024-06-30 12:11 | Emergency (ER) | payer BC ==
[2024-06-30 12:27] VITALS: BP 137/82; PULSE 96
[2024-06-30] MEDS: Diphtheria,Pertussis(Acell),Tetanus Vaccine 0.5 ML Syringe IM ONE (12:41)
[2024-06-30] MEDS: Bacitracin Oint 1 GM U/D Packet TOP ONE (12:41)
== END 2024-06-30 12:54 | disposition home or self-care (01) ==
LOC: DL.ED 12:11
DX: S61.200A Unspecified open wound of right index finger without damage to nail, initial encounter (principal); I10 Essential (primary) hypertension; E78.00 Pure hypercholesterolemia, unspecified; J45.909 Unspecified asthma, uncomplicated; K21.9 Gastro-esophageal reflux disease without esophagitis; E11.9 Type 2 diabetes mellitus without complications; Z86.16 Personal history of COVID-19; Z79.899 Other long term (current) drug therapy; Z79.84 Long term (current) use of oral hypoglycemic drugs; Z88.8 Allergy status to other drugs, medicaments and biological substances; Z23 Encounter for immunization; Z91.09 Other allergy status, other than to drugs and biological substances; Z91.010 Allergy to peanuts; Z91.048 Other nonmedicinal substance allergy status; Z88.0 Allergy status to penicillin
CPT/HCPCS: 90471; 90715; 99282-25; 99283; A9270-GY

== ENCOUNTER 2024-08-13 20:07 | Emergency (ER) | payer BC ==
[2024-08-13 20:23] VITALS: BP 125/80
[2024-08-13] MEDS: Albuterol/Ipratropium 3.0-0.5 MG/3 ML Neb Soln NEB ONE (20:30)
[2024-08-13] MEDS: Famotidine 20 MG/2 ML SDV IVPUSH ONE (20:37)
[2024-08-13] MEDS: methylPREDNISolone Sodium Succinate 125 MG/2 ML SDV IVPUSH ONE (20:43)
[2024-08-13] MEDS: Sodium Chloride 0.9% 10 ML Syringe FLUSH PRN (20:43)
[2024-08-13 21:03] VITALS: PULSE 85
== END 2024-08-13 20:59 | disposition home or self-care (01) ==
LOC: DL.ED 20:07
DX: R20.2 Paresthesia of skin (principal); R22.0 Localized swelling, mass and lump, head; T78.1XXA Other adverse food reactions, not elsewhere classified, initial encounter; I10 Essential (primary) hypertension; J45.909 Unspecified asthma, uncomplicated; E11.9 Type 2 diabetes mellitus without complications; E78.00 Pure hypercholesterolemia, unspecified; K21.9 Gastro-esophageal reflux disease without esophagitis; Z86.16 Personal history of COVID-19; Z90.89 Acquired absence of other organs; Z88.0 Allergy status to penicillin; Z91.018 Allergy to other foods; Z91.010 Allergy to peanuts; Z91.013 Allergy to seafood; Z91.048 Other nonmedicinal substance allergy status; Z79.51 Long term (current) use of inhaled steroids; Z79.84 Long term (current) use of oral hypoglycemic drugs; Z79.899 Other long term (current) drug therapy
CPT/HCPCS: 96374; 96375; 99283; 99284; J2919; J3490; J7620-GY

== ENCOUNTER 2024-09-10 20:28 | Emergency (ER) | payer BC ==
[2024-09-10 20:50] VITALS: BP 107/70; PULSE 94
[2024-09-10] MEDS: predniSONE 20 MG Tab PO ONE (21:21)
[2024-09-10] MEDS: Azithromycin 250 MG Tab PO ONE (21:21)
== END 2024-09-10 21:39 | disposition home or self-care (01) ==
LOC: DL.ED 20:28
DX: J45.901 Unspecified asthma with (acute) exacerbation (principal); R09.81 Nasal congestion; I10 Essential (primary) hypertension; E78.00 Pure hypercholesterolemia, unspecified; K21.9 Gastro-esophageal reflux disease without esophagitis; E11.9 Type 2 diabetes mellitus without complications; Z86.16 Personal history of COVID-19; Z90.89 Acquired absence of other organs; Z88.0 Allergy status to penicillin; Z91.010 Allergy to peanuts; Z91.013 Allergy to seafood; Z91.018 Allergy to other foods; Z91.048 Other nonmedicinal substance allergy status; Z79.51 Long term (current) use of inhaled steroids; Z79.84 Long term (current) use of oral hypoglycemic drugs; Z79.899 Other long term (current) drug therapy
CPT/HCPCS: 87081; 87430; 99283; A9270; J7512; 99284

== ENCOUNTER 2024-10-30 18:25 | Observation (INO) | payer BC ==
[2024-10-30] MEDS: Sodium Chloride 0.9% 1,000 ML IV ONE (18:51)
[2024-10-30] MEDS: methylPREDNISolone Sodium Succinate 125 MG/2 ML SDV IVPUSH ONE (18:51)
[2024-10-30 18:52] LABS: BASOPHILS PERCENT AUTO 0.4 % (0.0-1.0); EOSINOPHILS PERCENT AUTO 4.8 % (1.0-3.0); HEMATOCRIT 46.7 % (37.0-47.0); HEMOGLOBIN 15.5 g/dL (12.0-16.0); MEAN CORPUSCULAR HEMOGLOBIN 28.4 pg (27.0-34.0); MEAN CORPUSCULAR HGB CONC 33.2 g/dL (33.0-35.0); MEAN CORPUSCULAR VOLUME 85.7 fL (80-100); NEUTROPHILS PERCENT AUTO 50.8 % (42.2-75.2); PLATELET COUNT,PLT 260 10^3/uL (150-450); RED BLOOD CELL COUNT 5.45 10^6/uL (4.2-5.4); WHITE BLOOD CELL COUNT,WBC 11.7 10^3/uL (5.0-10.0)
[2024-10-30] MEDS: Famotidine 20 MG/2 ML SDV IVPUSH ONE (18:52)
[2024-10-30 19:12] LABS: A/G RATIO 1.2; ALBUMIN 3.9 g/dL (3.4-5.0); ANION GAP 14.9 mEq/L (7-13); BUN/CREATININE RATIO 6.4 (No establ ref range); CALCIUM 9.1 mg/dL (8.5-10.1); CREATININE 0.94 mg/dL (0.55-1.02); EST CRCL DRUG DOSING (CG) 64.49 mL/min; POTASSIUM,K 3.9 mmol/L (3.5-5.1); PROTEIN TOTAL,TP 7.2 g/dL (6.4-8.2)
[2024-10-30] MEDS ORDERED: Ketorolac 30 MG/ML SDV IVPUSH ONE (19:30)
[2024-10-30] MEDS ORDERED: Polyethylene Glycol 3350 Powder 17 GM Packet PO PRN (23:02)
[2024-10-30] MEDS ORDERED: Naloxone 2 MG/2 ML Syringe IVPUSH PRN (23:02)
[2024-10-30] MEDS ORDERED: Acetaminophen 325 MG Tab PO PRN (23:02)
[2024-10-30] MEDS ORDERED: HYDROmorphone 0.5 MG/0.5 ML Syringe IVPUSH PRN (23:02)
[2024-10-30] MEDS ORDERED: Ondansetron 4 MG/2 ML SDV IVPUSH PRN (23:02)
[2024-10-30] MEDS ORDERED: Metoclopramide 10 MG/2 ML SDV IV PRN (23:02)
[2024-10-30] MEDS ORDERED: Acetaminophen/oxyCODONE 325-5 MG Tab PO PRN (23:02)
[2024-10-30] MEDS ORDERED: Sennosides/Docusate Sodium 50-8.6 MG Tab PO PRN (23:02)
[2024-10-30] MEDS ORDERED: Magnesium Hydroxide 400 MG/5 ML Susp 30 ML Cup PO PRN (23:02)
[2024-10-30] MEDS: Montelukast 10 MG Tab PO ONE (23:51)
[2024-10-30] MEDS: Temazepam 15 MG Cap PO PRN (23:51)
[2024-10-30] MEDS: diphenhydrAMINE 50 MG/ML SDV IVPUSH ONE (23:52)
[2024-10-31 06:33] LABS: BASOPHILS PERCENT AUTO 0.1 % (0.0-1.0); EOSINOPHILS PERCENT AUTO 0.1 % (1.0-3.0); HEMATOCRIT 43.7 % (37.0-47.0); HEMOGLOBIN 14.5 g/dL (12.0-16.0); LYMPHOCYTES PERCENT AUTO 9.1 % (20.5-50.1); MEAN CORPUSCULAR HEMOGLOBIN 28.5 pg (27.0-34.0); MEAN CORPUSCULAR HGB CONC 33.2 g/dL (33.0-35.0); MEAN CORPUSCULAR VOLUME 85.9 fL (80-100); MONOCYTES PERCENT AUTO 0.7 % (2-8); PLATELET COUNT,PLT 258 10^3/uL (150-450); RED BLOOD CELL COUNT 5.09 10^6/uL (4.2-5.4); WHITE BLOOD CELL COUNT,WBC 16.9 10^3/uL (5.0-10.0)
[2024-10-31 06:59] LABS: ALANINE AMINOTRANSFERASE,ALT 27 U/L (14-59); ALBUMIN 3.3 g/dL (3.4-5.0); ALKALINE PHOSPHATASE 55 U/L (46-116); ANION GAP 19.4 mEq/L (7-13); ASPARTATE AMNIOTRANSFERASE,AST 13 U/L (15-37); BILIRUBIN TOTAL 1.1 mg/dL (0.2-1.0); BLOOD UREA NITROGEN,BUN 9 mg/dL (7-18); BUN/CREATININE RATIO 7.8 (No establ ref range); CALCIUM 8.6 mg/dL (8.5-10.1); CARBON DIOXIDE,CO2 22 mmol/L (21-32); CHLORIDE,CL 98 mmol/L (98-107); CREATININE 1.16 mg/dL (0.55-1.02); EST CRCL DRUG DOSING (CG) 52.26 mL/min; GLUCOSE RANDOM 275 mg/dL (70-99); MAGNESIUM 1.8 mg/dL (1.8-2.4); POTASSIUM,K 4.4 mmol/L (3.5-5.1); PROTEIN TOTAL,TP 6.4 g/dL (6.4-8.2); SODIUM,NA 135 mmol/L (136-145)
[2024-10-31 07:02] LABS: A/G RATIO 1.06; C-REACTIVE PROTEIN < 0.50 ng/dL (<=0.50); ESTIMATED GFR 60 mL/min (>=60)
[2024-10-31 07:13] LABS: SEDIMENTATION RATE MANUAL 2 mm/hr (0-20)
[2024-10-31] MEDS: metFORMIN 500 MG Tab PO SCH (08:11)
[2024-10-31] MEDS: Glimepiride 2 MG Tab PO SCH (08:12)
[2024-10-31] MEDS: Famotidine 20 MG/2 ML SDV IVPUSH SCH (08:16)
[2024-10-31] MEDS: Loratadine 10 MG Tab PO ONE (10:47)
[2024-10-31] MEDS: Loratadine 10 MG Tab PO SCH (10:48)
[2024-10-31] MEDS: Albuterol/Ipratropium 3.0-0.5 MG/3 ML Neb Soln NEB PRN (12:01)
[2024-10-31 16:22] VITALS: BP 120/69; PULSE 106
[2024-10-31] MEDS ORDERED: Loratadine 10 MG Tab PO SCH (21:00)
== END 2024-10-31 17:54 | disposition home or self-care (01) ==
LOC: DL.ED 18:25 → DL.MS 21:49
PROVIDERS: ADMIT Internal Medicine; ATTEND Internal Medicine
DX: T78.1XXA Other adverse food reactions, not elsewhere classified, initial encounter (principal); R07.89 Other chest pain; F41.9 Anxiety disorder, unspecified; R00.0 Tachycardia, unspecified; D72.829 Elevated white blood cell count, unspecified; E11.65 Type 2 diabetes mellitus with hyperglycemia; E66.811 Obesity, class 1; F17.210 Nicotine dependence, cigarettes, uncomplicated; Z68.32 Body mass index [BMI] 32.0-32.9, adult; Z79.899 Other long term (current) drug therapy; Z91.010 Allergy to peanuts; Z79.84 Long term (current) use of oral hypoglycemic drugs; Z88.0 Allergy status to penicillin; Z91.09 Other allergy status, other than to drugs and biological substances
CPT/HCPCS: 36415; 71045; 80053; 82550; 82947; 83690; 83735; 84484; 85025; 85651; 86140; 93005; 96361; 96374; 96375; 99223; 99238; 99285; A9270; J1200; J2919; J7030; 93010; 96376; 99284; G0378; J7620-GY

== ENCOUNTER 2025-09-05 11:04 | Emergency (ER) | payer BC ==
[2025-09-05 12:03] VITALS: BP 107/70; PULSE 88
== END 2025-09-05 11:58 | disposition home or self-care (01) ==
LOC: DL.ED 11:04
DX: T78.40XA Allergy, unspecified, initial encounter (principal); Z51.12 Encounter for antineoplastic immunotherapy; I10 Essential (primary) hypertension; K21.9 Gastro-esophageal reflux disease without esophagitis; E78.00 Pure hypercholesterolemia, unspecified; E11.9 Type 2 diabetes mellitus without complications; Z88.0 Allergy status to penicillin; Z91.013 Allergy to seafood; Z91.09 Other allergy status, other than to drugs and biological substances; Z91.010 Allergy to peanuts; Z88.8 Allergy status to other drugs, medicaments and biological substances; Z79.84 Long term (current) use of oral hypoglycemic drugs; Z79.899 Other long term (current) drug therapy; Z86.16 Personal history of COVID-19
CPT/HCPCS: 94640; 99284; J7620; A9270-GY